=== PATIENT | male | born 1985 | race Caucasian/White ===

== ENCOUNTER 2017-12-16 18:10 | Emergency (ER) | payer BC, SELFPAY ==
--- NOTE | 2017-12-16 18:10 | DT_ITS ---
This patient was seen during an EMR downtime December 15, 2017 - December 22, 2017. This patient may have a combination of paper and electronic documentation or all paper documentation. All documentation is viewable within the e-chart portion of [facility] for each patient visit.
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
[2017-12-18 18:26] LABS: Bacteria 0 SEEN /hpf (None Seen); Color, Urine Yellow (Yellow); Glucose, Dipstick Normal (Normal); Ketone-Dipstick Negative (Negative); Leukocyte Esterase-Dipstick Negative /ul (Negative); Mucous, Urine 2+ /hpf (<or=2+); Nitrite-Dipstick Negative (Negative); Occult Blood-Urine 10 /ul (Negative); Protein-Dipstick 30 mg/dl (Negative); Red Blood Cells-Urine 0-5 SEEN /hpf (0-5); Specific Gravity, Urine 1.025 (1.002-1.030); Squamous Epithelial Cells - UA 0-5 SEEN /hpf (0-5); Urine Bilirubin Dipstick Negative (Negative); Urine Clarity Sl Cloudy (Clear); Urine Urobilinogen Normal (Normal); White Blood Cells 0 SEEN /hpf (0-5)
[2017-12-18 21:19] LABS: Anion Gap 8 (5-15); BUN 15 mg/dL (7-18); BUN/Creat Ratio 10.3 RATIO (10-20); Calcium,Total 8.8 mg/dL (8.5-10.1); Chloride 108 mmol/L (98-107); Creatinine, Serum 1.45 mg/dL (0.70-1.30); EST Glomerular Filtration Rate 61 mL/min (>60); Est Glom Filt Rate - Afr Amer 74 mL/min (>60); Glucose 113 mg/dL (74-106); Potassium 3.9 mmol/L (3.5-5.1); Sodium Level 142 mmol/L (136-145)
[2017-12-19 09:34] LABS: Mean Corp Hgb Conc 33.3 g/gl (32-36); Mean Corpuscular Hgb 30.4 pg (27.0-32.0); Mean Corpuscular Volume 91.3 fL (80-94); Mean Platelet Vol. 10.7 fl (6.2-12.0); Platelet Count 310 K/mm3 (150-450); RBC Distribution Width CV 13.7 % (11.6-14.6); RBC Distribution Width SD 45.4 fl (35.1-43.9); Red Blood Count 5.26 M/mm3 (4.6-6.2); Scan Indicated on CBC? Y/N NO; White Blood Count 14.6 K/mm3 (4.4-11.0)
== END 2017-12-16 21:05 | disposition home or self-care (01) ==
LOC: ED 12-18 08:35
PROVIDERS: Emergency Provider Emergency Medicine; Family Provider Family Medicine; PCP Family Medicine
DX: N20.0 Calculus of kidney (principal)
CPT/HCPCS: 74176; 80048; 81001; 85027; 96361; 96374; 96375; 99283; J7030; J2405

== ENCOUNTER 2018-03-30 08:51 | Outpatient (RCR) | payer BC, SELFPAY | END 2018-04-12 23:59 | LOC: NS 08:51 | PROVIDERS: Family Provider Family Medicine; PCP Family Medicine; Visit Provider Family Medicine | DX: E66.9 Obesity, unspecified (principal); Z82.49 Family history of ischemic heart disease and other diseases of the circulatory system; Z71.3 Dietary counseling and surveillance | CPT/HCPCS: 97802 ==

== ENCOUNTER 2018-05-11 09:00 | Outpatient (RCR) | payer BC, SELFPAY | END 2018-05-13 23:59 | LOC: NS 09:00 | PROVIDERS: Family Provider Family Medicine; PCP Family Medicine; Visit Provider Family Medicine | DX: E66.9 Obesity, unspecified (principal); Z82.49 Family history of ischemic heart disease and other diseases of the circulatory system; Z71.3 Dietary counseling and surveillance | CPT/HCPCS: 97803 ==

== ENCOUNTER 2018-05-26 09:34 | Outpatient (RCR) | payer BC, SELFPAY | END 2018-06-12 23:59 | LOC: NS 09:34 | PROVIDERS: Family Provider Family Medicine; PCP Family Medicine; Visit Provider Family Medicine | DX: E66.9 Obesity, unspecified (principal); Z82.49 Family history of ischemic heart disease and other diseases of the circulatory system; Z71.3 Dietary counseling and surveillance | CPT/HCPCS: 97803 ==

== ENCOUNTER 2018-07-08 09:00 | Outpatient (RCR) | payer BC, SELFPAY ==
[2017-10-19 10:33] VITALS: BMI 39.4
== END 2018-07-13 23:59 ==
LOC: NS 09:00
PROVIDERS: Family Provider Family Medicine; PCP Family Medicine; Visit Provider Family Medicine
DX: E66.9 Obesity, unspecified (principal); Z82.49 Family history of ischemic heart disease and other diseases of the circulatory system; Z71.3 Dietary counseling and surveillance
CPT/HCPCS: 97803

== ENCOUNTER 2018-08-10 16:00 | Outpatient (RCR) | payer BC, SELFPAY ==
[2017-10-19 10:33] VITALS: BMI 39.4
== END 2018-08-13 23:59 ==
LOC: NS 16:00
PROVIDERS: Family Provider Family Medicine; PCP Family Medicine; Visit Provider Family Medicine
DX: E66.9 Obesity, unspecified (principal); Z82.49 Family history of ischemic heart disease and other diseases of the circulatory system; Z71.3 Dietary counseling and surveillance
CPT/HCPCS: 97803

== ENCOUNTER 2018-08-16 20:50 | Emergency (ER) | payer BC, SELFPAY ==
[2018-08-16 20:52] VITALS: BP 172/107; PULSE 95; RESP 18; TEMP 36.7; O2SAT 99; BMI 40.7
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
[2018-08-16] MEDS: Morphine 4 MG/ML Syringe IV ×2 (21:14→21:45)
[2018-08-16] MEDS: Ondansetron 4 MG/2 ML Vial IV (21:14)
[2018-08-16 21:21] VITALS: BP 147/89; PULSE 100; RESP 23; O2SAT 100
[2018-08-16] MEDS: Diphth,Pertuss(Acell),Tet Vac 0.5 ML Vial IM (21:25)
--- NOTE | 2018-08-16 21:36 | ED.RN ---
CLOTHES CUT OFF OF PATIENT. INCONTINENT OF STOOL. INCONTINENCE CARE DONE. STILL C/O PAIN IN HIS RIBS. THIS NURSE GOING TO ASK FOR SOME MORE PAIN MEDICATIONS.
--- NOTE | 2018-08-16 21:37 | EKG12_ITS ---
Test Reason : Blood Pressure : / mmHG Vent. Rate : 101 BPM Atrial Rate : 101 BPM P-R Int : 162 ms QRS Dur : 094 ms QT Int : 352 ms P-R-T Axes : 038 045 024 degrees QTc Int : 456 ms Sinus tachycardia Nonspecific ST and T wave abnormality Abnormal ECG Confirmed by ANNELISE KERR, BERYL ([id number]), scientific publications editor JULIANNA WOODWARD ([id number]) on 08/19/2018 1:43:27 PM Referred By: MIK Confirmed By:BERYL CASTELAN MD
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
[2018-08-16 22:08] VITALS: BP 159/89; PULSE 105; RESP 28; O2SAT 100
[2018-08-16 22:55] VITALS: BP 156/113; BP 156/115; PULSE 113; PULSE 114; RESP 26; RESP 33; O2SAT 96; O2SAT 97
[2018-08-16] MEDS: fentaNYL 100 MCG/2 ML Ampul 50 MCG IV (23:03)
[2018-08-16 23:06] VITALS: BP 162/96; PULSE 103; RESP 29; TEMP 37.2; O2SAT 97
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
[2018-08-17] VITALS: BP 162/96; PULSE 103; RESP 29; TEMP 37.1; O2SAT 97
[2018-08-17 00:07] VITALS: BP 146/98; PULSE 111; RESP 21; O2SAT 100
== END 2018-08-17 00:15 | disposition short-term general hospital (02) ==
LOC: ED 21:30
PROVIDERS: Emergency Provider Emergency Medicine; Family Provider Family Medicine; PCP Family Medicine
DX: S22.20XA Unspecified fracture of sternum, initial encounter for closed fracture (principal); S32.019A Unspecified fracture of first lumbar vertebra, initial encounter for closed fracture; S32.029A Unspecified fracture of second lumbar vertebra, initial encounter for closed fracture; S02.2XXA Fracture of nasal bones, initial encounter for closed fracture; V49.40XA Driver injured in collision with unspecified motor vehicles in traffic accident, initial encounter; Y93.I9 Activity, other involving external motion; Y92.410 Unspecified street and highway as the place of occurrence of the external cause; Y99.8 Other external cause status
CPT/HCPCS: 70450; 70486; 71260; 72125; 73130; 73502; 74177; 90715; 93005; 96374; 96375; 99285; Q9967; A4216; J2405

== ENCOUNTER 2018-08-25 16:05 | Outpatient (RCR) | payer BC, SELFPAY ==
[2017-10-19 10:33] VITALS: BMI 39.4
== END 2018-08-25 23:59 ==
LOC: NS 16:05
PROVIDERS: Family Provider Family Medicine; PCP Family Medicine; Visit Provider Family Medicine
DX: E66.9 Obesity, unspecified (principal); Z82.49 Family history of ischemic heart disease and other diseases of the circulatory system; Z71.3 Dietary counseling and surveillance
CPT/HCPCS: 97803

== ENCOUNTER → 2018-10-07 15:40 | Outpatient (CLI) | payer BC, SELFPAY ==
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
== END ==
PROVIDERS: Family Provider Family Medicine; PCP Family Medicine; Referring Provider Family Medicine; Visit Provider Family Medicine
DX: R07.81 Pleurodynia (principal); V89.2XXA Person injured in unspecified motor-vehicle accident, traffic, initial encounter
CPT/HCPCS: 71101

== ENCOUNTER → 2019-03-18 | Outpatient (CLI) | payer BC, SELFPAY ==
[2019-03-18 08:28] VITALS: BMI 40.7
== END | disposition home or self-care (01) ==
PROVIDERS: Family Provider Family Medicine; PCP Family Medicine; Referring Provider Physician Assistant; Visit Provider Physician Assistant
DX: J06.9 Acute upper respiratory infection, unspecified (principal)
CPT/HCPCS: 87070

== ENCOUNTER 2019-10-13 10:30 | Emergency (ER) | payer BC, SELFPAY ==
[2019-03-18 08:28] VITALS: BMI 40.7
[2019-10-13 10:31] VITALS: BP 164/102; PULSE 87; RESP 17; TEMP 36.1; O2SAT 96; BMI 42.0
--- NOTE | 2019-10-13 11:02 | ED.VIS.GEN ---
History of Present Illness Chief Complaint: Laceration Informant: Patient Onset: Today Narrative: The patient cut his left dorsum of his thumb with a box finisher today. Last tetanus was last year. Past Medical History - Allergies and Home Meds Allergies/Adverse Reactions: Allergies No Known Allergies Allergy (Verified 10/13/19 10:30) Primary Care Physician: Alison Flores MD [Primary Care Provider] - Smoking Status: Never smoker Review of Systems General: Denies: Chills, Fever, Sweats Eyes: Denies: Visual changes - bilaterally, Diplopia ENT: Denies: Rhinorrhea, Sore throat Cardiovascular: Denies: Chest pain, Palpitations Respiratory: Denies: Dyspnea, Cough, Dyspnea on exertion Gastrointestinal: Denies: Abdominal pain, Nausea, Vomiting, Diarrhea, Melena, Hematochezia Genitourinary: Denies: Dysuria, Hematuria, Frequency Musculoskeletal: Denies: Back pain, Extremity Pain Skin: Denies: Rash, Wounds Neurological: Denies: Headache, Weakness, Numbness Physical Exam Vital Signs/Narrative: Vital Signs Temp Pulse Resp BP Pulse Ox 10/13/19 10:31 96.9 F L 87 17 164/102 H 96 Inital Vital Signs reviewed: Yes General: Well nourished, Well developed, No Acute Distress Head: Normocephalic, Atraumatic Eyes: Perrl, EOMI ENT: Moist mucous membranes, No rhinorrhea Neck: Supple, Nontender Cardiovascular: Regular rate, Regular rhythm, No murmurs Respiratory: No distress, CTA bilaterally, Chest nontender Abdomen: Soft, Nontender, Nondistended, Normal bowel sounds Back: Nontender, Normal Inspection Extremities: Nontender, No edema, - - There is a 1.5 cm linear laceration to the dorsal lateral aspect of the distal thumb. No nail involvement. Neurovascular intact. Wound appears clean normal tendon function Skin: Normal color, No rash Neurological: Alert, Oriented x3, Cranial nerves II-XII grossly intact, Normal Strength, Normal Sensation Psychological: Normal affect, Normal Mood Diagnostic/Tx/Re-eval - Medical Decision Making Wound was locally anesthetized using 1% lidocaine washed with Shur-Clens explored and closed using a total of 3 simple interrupted 5-0 Ethilon sutures. Wound care discussed with patient. Stitches will need to be removed in about 10 days. ED Disposition - Plan for ED Patient: Disposition: Home or Assisted Living Instructions: ED Laceration Hand Referrals: Alison Flores MD [Primary Care Provider] - 10 Day for suture removal
== END 2019-10-13 11:21 | disposition home or self-care (01) ==
LOC: ED 11:11
PROVIDERS: Emergency Provider Emergency Medicine; PCP Family Medicine
DX: S61.012A Laceration without foreign body of left thumb without damage to nail, initial encounter (principal); W26.0XXA Contact with knife, initial encounter; Y93.89 Activity, other specified; Y92.89 Other specified places as the place of occurrence of the external cause; Y99.8 Other external cause status
CPT/HCPCS: 12001; 99283

== ENCOUNTER 2019-10-15 16:30 | Outpatient (RCR) | payer BC, SELFPAY ==
[2019-03-18 08:28] VITALS: BMI 40.7
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
--- NOTE | 2019-10-15 16:44 | HP.PTDCSUM ---
It has been my pleasure to treat DIANE DAVIS III referred by Alison Flores MD, with the diagnosis of LUMBAR PAIN for a total of 13 visit(s). Discharge Date: Please see the following information for a summary of their discharge status. Subjective: PATIENT REPORTS HE IS MUCH BETTER. 90% BETTER. STATES HE KNOWS WHAT TO DO TO TRY TO CONTINUE TO IMPROVE NOW. 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 STATES HE FEELS IT IS JUST A MATTER OF DOING BETTER AT USING WHAT HE KNOWS. Lumbar Spine Pain Intensity (Out of 10): 0 LLE Pain Intensity (Out of 10): 0 % Improvement: 90 Objective/Function: PATIENT WAS SEEN TODAY FOR RE-ASSESSMENT OF PROGRESS TOWARD THE SET PT GOALS AND THE NEED FOR FURTHER PHYSICAL THERAPY VS READINESS FOR DISCHARGE. ALL GOALS HAVE BEEN MET AND HE IS APPROPRIATE FOR DISCHARGE FROM PT AT THIS TIME. UPON EXAM TODAY: Motor deficit: ANNITA LE'S 5/5 WITH MMT'ING. Sensory deficit: ANNITA LE LIGHT TOUCH SENSATION INTACT AND SYMMETRICAL. ROM deficit: ANNITA LE'S WFL. Reflexes: NT. Dural Signs: NEGATIVE ANNITA LE'S. Lumbar mvmt loss: flex - NIL. ext - MIN. R SG - NIL. L SG - NIL. PATIENT DENIES INCREASED PAIN OR LE SX'S WITH LUMBAR ROM TESTING ALL PLANES. Core strength: POOR TO FAIR. BUT HAS HEP. Palpation: NO ACUTE LUMBAR OR SACRAL TENDERNESS Goal 1:: DECREASE C/O BACK AND LE SX'S. Goal Progress: Goal Met Goal 2:: IMPROVE STANDING, LIFTING, SOCIAL LIFE, AND WORK FUCNTION Goal Progress: Goal Met Goal 3:: INSTRUCT IN PROPYLAXIS Goal Progress: Goal Met Plan: D/C - PATIENT AGREEABLE. If there are questions or concerns regarding this patient's physical therapy, please feel free to call me at [phone]. Thank you for the referral of this patient. Sincerely, Ying Moreira, PT, Cert MDT
== END 2019-10-15 19:00 | disposition home or self-care (01) ==
LOC: PT 16:30
PROVIDERS: PCP Family Medicine; Referring Provider Family Medicine; Visit Provider Family Medicine
DX: M54.5 Low back pain (principal)
CPT/HCPCS: 97112; 97113; 97162; 97164

== ENCOUNTER → 2022-01-10 | Outpatient (CLI) | payer BC, SELFPAY ==
[2022-01-10 17:52] LABS: Absolute Lymphocyte Count 2.79 X10^3/uL (0.83-4.51); Absolute Neutrophil Count 4.4 X10^3/uL (2.0-7.7); Basophil# 0.09 X10^3/uL; Basophil% 1.1 % (0-1); Eosinophils% 4.7 % (0-5); Hematocrit 48.3 % (40-54); Hemoglobin 16.2 g/dL (13.0-16.5); Lymphocyte # 2.79 X10^3/ul (0.83-4.51); Lymphocyte % 33.1 % (19-41); Mean Corp Hgb Conc 33.5 g/dL (32-36); Mean Corpuscular Volume 92.5 fL (80-94); Mean Platelet Vol. 10.6 fl (6.2-12.0); Monocyte# 0.74 X10^3/uL; Monocyte% 8.8 % (0-10); NRBC Flagged by Analyzer 0 % (0-5); Neutrophil % 52.1 % (47-70); Platelet Count 320 K/mm3 (150-450); RBC Distribution Width CV 13.7 % (11.6-14.6); Red Blood Count 5.22 M/mm3 (4.6-6.2); White Blood Count 8.4 K/mm3 (4.4-11.0)
[2022-01-10 18:26] LABS: ALB/GLOB Ratio 0.9 RATIO (0.9-2.4); AST(SGOT) 35 U/L (15-37); Alanine Aminotransfer ALT/SGPT 73 U/L (16-61); Albumin, Serum 3.9 g/dL (3.2-5.0); Alkaline Phosphatase 108 U/L (45-117); Anion Gap 7 (5-15); BUN 18 mg/dL (7-18); BUN/Creat Ratio 14.8 RATIO (10-20); Chloride 108 mmol/L (98-107); Cholesterol 186 mg/dL (200); Creatinine, Serum 1.22 mg/dL (0.70-1.30); EST Glomerular Filtration Rate 72 mL/min (>60); Est Glom Filt Rate - Afr Amer 87 mL/min (>60); Globulin 4.2 g/dL (2.2-4.2); Glucose 89 mg/dL (74-106); High Density Lipoprotein 47 mg/dL; Magnesium 2.4 mg/dL (1.6-2.6); Potassium 3.7 mmol/L (3.5-5.1); Protein, Total 8.1 g/dL (6.4-8.2); Sodium Level 139 mmol/L (136-145); Thyroid Stim Hormone (TSH) 2.66 uIU/mL (0.358-3.74); Triglycerides 160 mg/dL; Very Low Density Lipoprotein 32 mg/dL (5-40)
[2022-01-11 13:40] LABS: Hepatitis B Surface Antibody Non-Reactive; Hepatitis B Surface Antigen Non-Reactive (Nonreactive); Hepatitis C Antibody Non-Reactive (Nonreactive)
== END | disposition home or self-care (01) ==
LOC: MFPLAB 16:24
PROVIDERS: PCP Family Medicine; Visit Provider Family Medicine
DX: E66.01 Morbid (severe) obesity due to excess calories (principal); R03.0 Elevated blood-pressure reading, without diagnosis of hypertension
CPT/HCPCS: 36415; 80053; 80061; 83735; 84443; 85025; 86706; 86803; 87340

== ENCOUNTER 2022-07-30 12:36 | Day surgery (SDC) | payer OTHER, SELFPAY ==
[2022-07-30 13:03] VITALS: BP 139/89; PULSE 67; RESP 17; TEMP 36.6; O2SAT 95; BMI 43.9
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
--- NOTE | 2022-07-30 14:00 | EGD_PTH ---
PATIENT: DIANE DAVIS III LOC: EN U#:[id number] AGE/SX: 37/M ROOM: RE07/30/[address]: Dr. Srinath Suazo DO : 1985 BED: DIS: 07/30/2022 SPEC #: [id number] RECD: 07/30/22 17:10 STATUS: TREASURE RAJENDRA #: [id number] CARINE: 07/30/22 14:[address]: Srinath Suazo DEPT: SURGICAL PATHOLOGY RECD BY: Galen Armando ENTERED: 07/31/22 09:49 SP TYPE: EGD BIOPSY OT DR: MD Chaz Rangel MD Tissues: Esophagus, NOS Procedures: Special Stain Group II Surgery Specimen Level IV Alcian Blue/PAS (control) HEADER OPER[place] [place] with [place] PRE-OP DIAGNOSIS: GERD TISSUE SUBMITTED: Distal esophagus biopsy MICROSCOPIC DIAGNOSIS Distal esophagus, biopsy: Gastroesophageal junctional mucosa with chronic inflammation. Changes of reflux esophagitis. No evidence of goblet cell metaplasia. See comment. AM:charlie 08/01/2022 COMMENT Alcian blue/PAS stain with matched control supports the above diagnosis. MICROSCOPIC DESCRIPTION Slides are reviewed. GROSS DESCRIPTION Received in fixative is one container labeled with the patient's name and designated distal esophagus biopsy. The specimen consists of multiple irregular fragments of light prasad soft tissue that in aggregate measure 1 x 0.5 x 0.1 cm. The specimen is totally submitted in one cassette. / AM:charlie 07/31/2022 TC:3 CPT: 40686, 81481
--- NOTE | 2022-07-30 14:24 | OP.EGD_ITS ---
Patient Name: Billy Barbosa Procedure Date: 07/30/2022 2:07 PM Date of : 1985 Age: 37 Procedure: Upper GI endoscopy Indications: Heartburn Providers: Srinath Suazo DO Referring MD: Chaz Nguyễn Medicines: Monitored Anesthesia Care Patient Profile: This is a 37 year old male. Refer to note in patient chart for documentation of history and physical. Patient has symptoms of chronic heartburn. Complications: No immediate complications. Procedure: Pre-Anesthesia Assessment: - Prior to the procedure, a History and Physical was performed, and patient medications and allergies were reviewed. The risks and benefits of the procedure and the sedation options and risks were discussed with the patient. All questions were answered and informed consent was obtained. Patient identification and proposed procedure were verified by the physician. Mental Status Examination: normal. Prophylactic Antibiotics: The patient does not require prophylactic antibiotics. Prior Anticoagulants: The patient has taken no previous anticoagulant or antiplatelet agents. After reviewing the risks and benefits, the patient was deemed in satisfactory condition to undergo the procedure. The anesthesia plan was to use monitored anesthesia care (MAC). Immediately prior to administration of medications, the patient was re-assessed for adequacy to receive sedatives. The heart rate, respiratory rate, oxygen saturations, blood pressure, adequacy of pulmonary ventilation, and response to care were monitored throughout the procedure. The physical status of the patient was re-assessed after the procedure. After obtaining informed consent, the endoscope was passed under direct vision. Throughout the procedure, the patient's blood pressure, pulse, and oxygen saturations were monitored continuously. The gastroscope was introduced through the mouth, and advanced to the second part of duodenum. The upper GI endoscopy was accomplished without difficulty. The patient tolerated the procedure well. Scope In: 2:17:16 PM Scope Out: 2:19:10 PM Total Procedure Duration Time 0 hours 1 minute 54 seconds Findings: The Z-line was irregular and was found 38 cm from the incisors. Biopsies were taken with a cold forceps for histology. Verification of patient identification for the specimen was done. Estimated blood loss was minimal. No gross lesions were noted in the entire examined stomach. No other significant abnormalities were identified in a careful examination of the stomach. The first portion of the duodenum was normal. Impression: - Z-line irregular, 38 cm from the incisors. Biopsied. - No gross lesions in the stomach. - Normal first portion of the duodenum. Recommendation: - Discharge patient to home. - Resume previous diet. - Continue present medications. - Await pathology results. Procedure Code(s): --- Professional --- 07752, Esophagogastroduodenoscopy, flexible, transoral; with biopsy, single or multiple CPT copyright 2017 [employer]. All rights reserved. The codes documented in this report are preliminary and upon fluid power mechanic review may be revised to meet current compliance requirements. Srinath Suazo DO 07/30/2022 2:24:05 PM This report has been signed electronically. Number of Addenda: 0 Note Initiated On: 07/30/2022 2:07 PM
[2022-07-30 14:25] VITALS: BP 107/73; BP 139/89; PULSE 71; RESP 14; TEMP 36.2; O2SAT 93
--- NOTE | 2022-07-30 14:25 | OP.CCLET_ITS ---
07/30/2022 Chaz Nguyễn Md Re : Upper GI endoscopy procedure for Billy Barbosa Dear Delma This procedure was performed on Saturday, July 30, 2022. My impressions and recommendations are as follows: Impressions : - Z-line irregular, 38 cm from the incisors. Biopsied. - No gross lesions in the stomach. - Normal first portion of the duodenum. Recommendations : - Discharge patient to home. - Resume previous diet. - Continue present medications. - Await pathology results. My findings are described in the full procedure note, which is enclosed. If I can be of further assistance, please feel free to contact me at . Sincerely, Srinath Suazo, 07/30/2022 2:24:05 PM This report has been signed electronically.
[2022-07-30 14:30] VITALS: BP 139/89; BP 99/65; PULSE 60; RESP 16; O2SAT 94
[2022-07-30 14:35] VITALS: BP 107/69; BP 139/89; PULSE 62; RESP 16; O2SAT 94
[2022-07-30 14:40] VITALS: BP 103/74; BP 139/89; PULSE 72; RESP 16; TEMP 36.2; O2SAT 94
[2022-07-30 14:58] VITALS: BP 139/89
== END 2022-07-30 15:11 | disposition home or self-care (01) ==
LOC: EN 12:37 → AC 12:38
PROVIDERS: PCP Family Medicine; Referring Provider Family Medicine; Visit Provider Internal Medicine Gastroenterology
PROC: 0DJ08ZZ Inspection of Upper Intestinal Tract, Via Natural or Artificial Opening Endoscopic (ICD-10-PCS; CPT 43235; principal; 2022-07-30 13:55)
DX: K21.00 Gastro-esophageal reflux disease with esophagitis, without bleeding (principal)
CPT/HCPCS: 43239; 88305; 88313; J7120; J2405

== ENCOUNTER → 2023-02-20 | Outpatient (CLI) | payer OTHER, SELFPAY ==
[2023-02-20 12:12] LABS: Bacteria 0 SEEN /hpf (None Seen); Mucous, Urine 0 SEEN /hpf (<or=2+); Red Blood Cells-Urine 0 SEEN /hpf (0-5); Squamous Epithelial Cells - UA 0 SEEN /hpf (0-5); White Blood Cells 0 SEEN /hpf (0-5)
[2023-02-20 15:23] LABS: Absolute Neutrophil Count 4.4 X10^3/uL (2.0-7.7); Basophil# 0.07 X10^3/uL; Color, Urine Yellow (Yellow); Eosinophil# 0.21 X10^3/uL; Eosinophils% 2.9 % (0-5); Glucose, Dipstick Normal (Normal); Hematocrit 48.8 % (40-54); Hemoglobin 15.5 g/dL (13.0-16.5); Ketone-Dipstick Negative (Negative); Leukocyte Esterase-Dipstick Negative /ul (Negative); Lymphocyte % 28.6 % (19-41); Mean Corp Hgb Conc 31.8 g/dL (32-36); Mean Corpuscular Hgb 30.6 pg (27.0-32.0); Mean Corpuscular Volume 96.3 fL (80-94); Mean Platelet Vol. 10.6 fl (6.2-12.0); Monocyte# 0.57 X10^3/uL; Monocyte% 7.8 % (0-10); NRBC Flagged by Analyzer 0 % (0-5); Neutrophil # 4.37 X10^3/uL (2.7-7.7); Neutrophil % 59.4 % (47-70); Nitrite-Dipstick Negative (Negative); Occult Blood-Urine Negative /ul (Negative); Platelet Count 335 K/mm3 (150-450); Protein-Dipstick Negative (Negative); RBC Distribution Width CV 14.1 % (11.6-14.6); RBC Distribution Width SD 49.8 fl (35.1-43.9); Red Blood Count 5.07 M/mm3 (4.6-6.2); Urine Bilirubin Dipstick Negative (Negative); Urine Clarity Clear (Clear); Urine Urobilinogen Normal (Normal); White Blood Count 7.3 K/mm3 (4.4-11.0)
[2023-02-20 16:08] LABS: ALB/GLOB Ratio 0.9 RATIO (0.9-2.4); AST(SGOT) 29 U/L (15-37); Alanine Aminotransfer ALT/SGPT 66 U/L (16-61); Albumin, Serum 3.7 g/dL (3.2-5.0); Alkaline Phosphatase 121 U/L (45-117); Anion Gap 5 (5-15); BUN 14 mg/dL (7-18); BUN/Creat Ratio 13.2 RATIO (10-20); Chloride 106 mmol/L (98-107); Cholesterol 131 mg/dL (200); Creatinine, Serum 1.06 mg/dL (0.70-1.30); EST Glomerular Filtration Rate 84 mL/min (>60); Est Glom Filt Rate - Afr Amer 102 mL/min (>60); Globulin 4.2 g/dL (2.2-4.2); Glucose 97 mg/dL (74-106); High Density Lipoprotein 57 mg/dL; Potassium 4.2 mmol/L (3.5-5.1); Protein, Total 7.9 g/dL (6.4-8.2); Sodium Level 138 mmol/L (136-145); Thyroid Stim Hormone (TSH) 2.67 uIU/mL (0.358-3.74); Triglycerides 130 mg/dL; Very Low Density Lipoprotein 26 mg/dL (5-40)
[2023-02-20 16:30] LABS: Hepatitis B Surface Antibody Non-Reactive; Hepatitis B Surface Antigen Non-Reactive (Nonreactive); Hepatitis C Antibody Non-Reactive (Nonreactive)
== END | disposition home or self-care (01) ==
LOC: MFPLAB 12:09
PROVIDERS: PCP Family Medicine; Visit Provider Family Medicine
DX: I10 Essential (primary) hypertension (principal)
CPT/HCPCS: 36415; 80053; 80061; 81001; 84443; 85025; 86706; 86803; 87340

== ENCOUNTER → 2023-03-12 | Outpatient (CLI) | payer OTHER, SELFPAY ==
--- NOTE | 2023-03-17 16:32 | STRESSREP ---
Stress Test Report Date: 03/12/2023 Procedure: Exercise stress test Indications: Chest pain Consent: Per the patient Procedure: The patient exercised on a Tushar protocol for 7 minutes achieving a peak heart rate of 179 bpm (96% predicted maximal heart rate) with a peak blood pressure 198/100 mmHg and a peak MET capacity of 10.1 METs. The baseline ECG demonstrated normal sinus rhythm. The peak exercise ECG demonstrated no significant ischemic changes. EKG during recovery revealed no significant ischemic changes [There were no cardiac dysrhythmias pretest, during exercise, or recovery]. The functional capacity was considered borderline decreased for age. There was [no complaint of chest discomfort during exercise or recovery]. The examination was discontinued secondary to shortness of breath. Impression: 1. Technically adequate (percent predicted maximal heart rate greater than 85%) exercise tolerance test 2. Stress test is negative for exercise-induced EKG changes of ischemia 3. The test test is negative for exercise-induced chest pain 4. Functional capacity is mildly decreased for age
== END | disposition home or self-care (01) ==
LOC: CVS 11:40
PROVIDERS: PCP Family Medicine; Referring Provider Family Medicine; Visit Provider Family Medicine
DX: R07.89 Other chest pain (principal)
CPT/HCPCS: 93017

== ENCOUNTER → 2023-03-20 | Outpatient (CLI) | payer OTHER, SELFPAY ==
[2023-03-20 17:39] LABS: Absolute Lymphocyte Count 2.54 X10^3/uL (0.83-4.51); Absolute Neutrophil Count 3.8 X10^3/uL (2.0-7.7); Basophil# 0.08 X10^3/uL; Basophil% 1.1 % (0-1); Eosinophil# 0.25 X10^3/uL; Eosinophils% 3.4 % (0-5); Hematocrit 48.6 % (40-54); Hemoglobin 15.8 g/dL (13.0-16.5); Lymphocyte # 2.54 X10^3/ul (0.83-4.51); Lymphocyte % 34.3 % (19-41); Mean Corp Hgb Conc 32.5 g/dL (32-36); Mean Corpuscular Hgb 30.8 pg (27.0-32.0); Mean Corpuscular Volume 94.7 fL (80-94); Mean Platelet Vol. 10.5 fl (6.2-12.0); Monocyte# 0.71 X10^3/uL; Monocyte% 9.6 % (0-10); NRBC Flagged by Analyzer 0 % (0-5); Neutrophil # 3.81 X10^3/uL (2.7-7.7); Neutrophil % 51.5 % (47-70); Platelet Count 327 K/mm3 (150-450); RBC Distribution Width CV 14.1 % (11.6-14.6); Red Blood Count 5.13 M/mm3 (4.6-6.2); White Blood Count 7.4 K/mm3 (4.4-11.0)
[2023-03-20 17:53] LABS: AST(SGOT) 28 U/L (15-37); Alanine Aminotransfer ALT/SGPT 55 U/L (16-61)
[2023-03-24 10:08] LABS: QNTFERON TB Mitogen Value > 10.00 IU/mL (.); QNTFERON TB Nil Value 0.06 IU/mL (.); QNTFERON TB1+ Ag Value 0.05 IU/mL (.); QNTFERON TB2+ Ag Value 0.08 IU/mL (.); QNTIFERON TB Positive Criteria Negative (Negative)
== END | disposition home or self-care (01) ==
LOC: MFPLAB 14:34
PROVIDERS: PCP Family Medicine; Visit Provider Dermatology
DX: L40.0 Psoriasis vulgaris (principal); Z79.899 Other long term (current) drug therapy
CPT/HCPCS: 36415; 84450; 84460; 85025; 86480

== ENCOUNTER → 2023-05-10 | Outpatient (CLI) | payer OTHER, SELFPAY ==
--- NOTE | 2023-05-10 08:42 | US_ITS ---
STUDY: RENAL ULTRASOUND - COMPLETE REASON FOR EXAM: Male, 37 years old. Elevated BUN and creatinine TECHNIQUE: Ultrasound evaluation of the kidneys was performed with real-time and static rossi-scale imaging. COMPARISON: None. FINDINGS: RIGHT KIDNEY: Normal location of the right kidney, which is normal in size. The right kidney measures 12.0 x 5.0 x 5.5 cm. There is a normal cortex of the right kidney. The renal cortex measures 1.4 cm. There is a well-defined not simple cyst measuring 3.1 x 2.4 x 2.6 cm. Recommend either follow-up ultrasound in 3-6 months to assess stability or further evaluation with CT for further evaluation There are no right renal calculi. There is no right hydronephrosis. DISTAL RIGHT URETER: There is non-visualization of the distal right ureter. There is no demonstrated right ureterovesical junction calculus. There is a visualized right ureteral jet. LEFT KIDNEY: Normal location of the left kidney, which is normal in size. The left kidney measures 11.4 x 5.5 x 6.0 cm. There is a normal cortex of the left kidney. The renal cortex measures 1.5 cm. There is no left renal mass or cyst. There are no left renal calculi. There is no left hydronephrosis. DISTAL LEFT URETER: There is non-visualization of the distal left ureter. There is no demonstrated left ureterovesical junction calculus. There is a visualized left ureteral jet. AORTA: There is no elongation or tortuosity of the abdominal aorta. I.V.C.: The IVC is patent. BLADDER: The bladder is sonographically normal US/Kidney and Bladder IMPRESSION: No obstructive uropathy There is a hypoechoic structure in the right kidney, it is not a simple cyst by ultrasound. Recommend either further evaluation with CT or short-term follow-up ultrasound to reassess. Electronically Signed: Alexi Fernandez MD at 10:50 EDT ,
== END | disposition home or self-care (01) ==
LOC: US 08:38
PROVIDERS: PCP Family Medicine; Referring Provider Family Medicine; Visit Provider Family Medicine
DX: I10 Essential (primary) hypertension (principal)
CPT/HCPCS: 76770

== ENCOUNTER 2023-05-12 08:00 | Outpatient (RCR) | payer OTHER, SELFPAY ==
--- NOTE | 2023-05-12 09:00 | BH.COMM ---
Communication Note Communication with Client Communication Note: Met with client to complete update to pre-admission screening. Pt had completed an intake less than 4 weeks ago, however has since been admitted to inpatient psych unit. Update completed. Complete [facility] Suicide screening with low-moderate risk. Denies active SI, plan, or intent. Last SI occurred 2 weeks ago. [address] with Dr. Dominguez with plan to admit to [facility] level of care with dx f33.2
--- NOTE | 2023-05-12 09:10 | BH.SGPN.GN ---
Behaviors/Verbalizations/Mental Status: [Patient was alert and oriented, appropriately dressed and groomed. Eye contact was good, motor activity normal, speech within normal limits. Affect congruent, mood anxious. Thoughts linear, logical, no signs of hallucinations or delusions. Reviewed Patients symptom tracker and the patient reported themselves as moderate in anxiety/panic attacks and low/moderate for depressed mood. The patient does not report symptoms of agitation/irritability/anger, self-harm urges, or thoughts/risk of suicide.] Client Response/Progress/Benefit: [] Narrative Note: [Today was the patients first day in group. Patient was engaged and open to the discussion. Patient reported his mood to be ?anxious?. The patient shared that he does not normally ?put himself out there like this? and that his first win would be that he is engaging in something that makes him uncomfortable. The patient shared he had just gotten out of the hospital on Friday and is now accepting that he needs help. Patient shared that he isolates and was taught he takes care of himself and does not want to burden people with his problems. Making these changes he said is going to be uncomfortable and stressful, but he said he ?has no choice? now. When prompted about what this meant he said that if he wants to be happy, he has no choice but to reach out. Patient was interactive and respectful with other group members about their mental wins and stressors. Patient benefited from the discussion by listening to feedback and giving input on his peer?s stressors and mental health wins. Patient will continue with IOP treatment to help develop healthy skills, promote mood stability, and improve distress tolerance. ]
--- NOTE | 2023-05-12 10:15 | BH.SGPN.GN ---
Behaviors/Verbalizations/Mental Status: [] Eye contact is good. Motor activity is appropriate. Appearance is casual. Speech is Appropriate. Mood is anxious and depressed. Affect is congruent. Thoughts are linear and logical. No evidence of psychosis. Client Response/Progress/Benefit: [] Client first day in IOP tx, he was attentive during interactive group discussions AEB by writing notes, asking questions, and sharing when prompted. Attentive during psychoeducation on the six types of boundaries (physical, emotional, intellectual, sexual, time, and material). Along with peers, pt contributed to interactive discussion identifying common challenges to setting and maintaining healthy boundaries which included; fear of other's response, guilt, fear of losing relationships, and resentment for having to establish the boundary in the first place. Client along with peers identified the benefits to setting boundaries. Client shared he struggles with setting boundaries because he has had past negative experiences when establishing a boundary, as well as struggles with mind reading and predicting that the boundary with be disrespected so why bother?. Client benefited from increased awareness and insight on the importance/benefit to setting healthy boundaries. Will continue in IOP to improve daily functioning, increase healthy coping repertoire to reduce anxiety and depression, and prevent decompensation. Narrative Note: []
--- NOTE | 2023-05-12 11:15 | BH.SGPN.GN ---
Behaviors/Verbalizations/Mental Status: []Pt alert and oriented, casually dressed and groomed. Eye contact good. Motor activity appropriate. Speech within normal limits. Affect congruent, mood anxious and depressed. Thoughts linear, logical, no signs of hallucinations or delusions. Client Response/Progress/Benefit: []Pt responded well to session, engaged and contributing. Pt attentive during psychoeducation on the different boundary styles. Pt reports connecting with all 3 boundary setting styles depending on the person or environment. Pt shared this has impacted his ability to consistently feel in control of his decisions. Group brainstormed various strategies for improving ability to establish and maintain healthy boundaries. Reported he wants to work on using Delay, Distract, and Decide before reacting when trying to maintain a boundary. Appeared to benefit from increasing insight to boundary setting styles and the impacts on mental health. Will continue IOP tx to prevent decompensation, improve ability to function and better challenge thought distortions, and increase healthy coping. Narrative Note: []
--- NOTE | 2023-05-13 09:00 | BH.SGPN.GN ---
Behaviors/Verbalizations/Mental Status: [] Eye contact is poor. Motor activity is appropriate. Appearance is casual. Speech is Appropriate. Mood is depressed. Affect is flat. Thoughts are linear and logical. No evidence of psychosis. Reviewed daily check in sheet and no reports of suicidal ideations or intent. Client Response/Progress/Benefit: [] Pt participated when prompted. Attentive. Daily symptom tracker notes 2/5 for depression and 1/5 for anxiety and irritabilty. Emotion for today is content. He shared struggles with depression and negative automatic thoughts last evening. Also reports feeling guilty for recent actions. Discussed unrealistic expectations to solve everyone's problems which often leads to neglecting himself. Reports that while he was struggling yesterday he had the thought and urge to stop mental health treatment for himself and instead focus on helping his . I just wanted to give up. Group was able to challenge these thoughts and beliefs which was beneficial. Reports feeling guilty due to his mental health struggles recently and how this has impacted his family. Limited progress noted AEB continued negative automatic thoughts and cognitive distortions impacting his functioning and emotions. Will continue in IOP to prevent decompensation/re-admission, stabilize mood, increase healthy coping, and improve functioning to return to work. Narrative Note: []
--- NOTE | 2023-05-13 10:03 | BH.SGPN.GN ---
Behaviors/Verbalizations/Mental Status: [] Client alert and oriented, casually dressed and groomed. Eye contact good. Motor activity appropriate. Speech within normal limits. Affect congruent, mood euthymic. Thoughts linear, logical, no signs of hallucinations or delusions. Client Response/Progress/Benefit: [] Client responded well to session AEB sharing and listening attentively to others. Client provided examples of benefits of having social support, including that they can ?help give you different views on a situation?. Client also participated in group discussion regarding how it feels to not have social support.. Clinician provided psychoeducation on types of support including internal and external support, with client identifying family and therapist as other supports. Client participated in experiential activity illustrating the importance of having multiple social supports and highlighting the roles of supports. Client provided supportive feedback and problem solving throughout group activity. Client participated in group processing of the activity, stating having more social support takes all the pressure off yourself. Client appeared to benefit from increased knowledge of the benefits of social support and greater self-awareness. Will continue IOP treatment to continue increasing application of healthy coping skills and decreasing negative self-talk to improve daily functioning. Narrative Note: []
--- NOTE | 2023-05-13 11:03 | BH.SGPN.GN ---
Behaviors/Verbalizations/Mental Status: [] Client alert and oriented, casually dressed and groomed. Eye contact good. Motor activity appropriate. Speech within normal limits. Affect congruent, mood euthymic. Thoughts linear, logical, no signs of hallucinations or delusions. Client Response/Progress/Benefit: [] Client was an active participant throughout AEB contributing to discussion, providing personal examples, and taking notes. Client processed emotions felt in the activity and how they coped in the moment. Client provided input during discussion on the types of support our supports can provide. Client able to identify current support system and barriers that get in the way of using supports by drawing out their own support net. Client reported after identifying what type of supports they receive; they gained awareness that they could benefit from more informational supports. Client identified steps to achieve this by going to therapy, look for more groups, and learn and be more open to learn. Client shared increasing informational supports will help them learn more ways to cope and mange their lives. Client seemed to benefit from identifying the type of support client needs to work on improving. Client recommended to continue IOP tx to prevent decompensation, reduce isolation, and increase overall functioning. Narrative Note: []
--- NOTE | 2023-05-15 15:00 | BH.MTP_ITS ---
Master Treatment Plan Patient Information Program Physician:: Dr. De Primary Therapist:: Ester Gastelum, [facility] Psychiatric Diagnoses Psychiatric Diagnoses:: 1. Major depressive disorder, recurrent, severe without psychosis 2. Panic disorder 3. History of ADHD 4. Primary support and work issues Diagnosis Code(s):: F33.2 Estimated LOS Estimated LOS (in weeks):: 6 Problem/Goal #1 Problem/Goal #1 Stated Goal:: Client will reduce depressive symptoms, feelings of worthlessness, and anhedonia due to Major Depressive Disorder through Intensive Outpatient Program. Description of Barriers: Potential barriers include low motivation, apathy, negative thoughts, anhedonia, and anxious thoughts. Functional Impact: The patient is a 37-year-old male with a history of depression, anxiety and PTSD who was referred to the [facility] by his psychiatric providers for worsening depression and anxiety. The patient did an intake but then was admitted at [facility] psychiatric unit from May 04 to May 09, 2023 for depression and suicidal ideation and anxiety. He states that people at work were critical of him and accused him of not doing his job so I just walked out. He has a long history of depression for most of his life and he somewhat blames himself for his father committing suicide when the patient was a teenager. He remains depressed with occasional crying and decreased motivation. He denies hopelessness but admits to guilt and occasional worthlessness. He endorses anhedonia and low, low energy and, and decreased concentration. Objectives Objective #1: Stated Objective: Client will learn and utilize 2-3 healthy coping strategies to manage depressive symptoms. Interventions: Therapist will utilize CBT techniques to assist client with understanding the connection between thoughts, feelings and behaviors. Education will be provided on behavioral activation. Therapist will assist client in learning internal coping strategies to manage depressive symptoms, along with helping client identify triggers. Discharge Criteria: Client will have achieved this goal when can verbalize and has practiced at least 2 healthy coping strategies that successfully manage depressive symptoms. Objective #2: Stated Objective: Client will identify and replace 2-3 negative thinking patterns that reinforce feelings of depression. Interventions: Group and therapist will assist the client in identifying, challenging, and replacing dysfunctional thoughts with positive self-enhancing thoughts. Discharge Criteria: Client will have achieved this goal when can identify at least 2 negative thinking patterns and replace thoughts with rational thoughts. Problem/Goal #2 Problem/Goal #2 Stated Goal:: Stabilize anxiety level while increasing ability to function on daily basis. Description of Barriers: Potential barriers include low motivation, apathy, negative thoughts, anhedonia, and anxious thoughts. Functional Impact: The patient is a 37-year-old male with a history of depression, anxiety and PTSD who was referred to the [facility] by his psychiatric providers for worsening depression and anxiety. The patient did an intake but then was admitted at [facility] psychiatric unit from May 04 to May 09, 2023 for depression and suicidal ideation and anxiety. He states that people at work were critical of him and accused him of not doing his job so I just walked out. He has a long history of depression for most of his life and he somewhat blames himself for his father committing suicide when the patient was a teenager. He remains depressed with occasional crying and decreased motivation. He denies hopelessness but admits to guilt and occasional worthlessness. He endorses anhedonia and low, low energy and, and decreased concentration. Objectives Objective #1: Stated Objective: Client will learn and implement 2-3 calming skills to reduce overall anxiety and manage anxiety symptoms. Interventions: Therapist and group sessions will help client identify physiological warning signs of anxiety, increase awareness of thoughts that increase anxiety, and identify behaviors that reinforce anxious symptoms. Group and individual counseling will teach client calming skills to help manage anxious symptoms. Discharge Criteria: Client will have achieved this goal when can verbalize at least 2 calming skills and reports skills successfully help reduce anxious symptoms. Objective #2: Stated Objective: Pt will decrease anxious symptoms AEB pt?s score on the DSM 5 cross-cutting measure improve pt?s daily functioning. Interventions: Through groups and individual therapy, pt will be provided education about anxiety?s impact on body and common physiological reaction to anxiety. Therapist will teach pt appropriate breathing techniques and build healthy coping skills to manage daily anxieties. Discharge Criteria: Pt will have met this goal when pt?s score on the DSM 5 cross cutting measure for anxiety has been decreased and per pt?s report daily functioning has improved.
== END 2023-05-13 23:59 ==
LOC: BHIOP 08:00
PROVIDERS: PCP Family Medicine; Referring Provider Psychiatry & Neurology Psychiatry; Visit Provider Psychiatry & Neurology Psychiatry
DX: F33.2 Major depressive disorder, recurrent severe without psychotic features (principal)
CPT/HCPCS: S9480; 90853

== ENCOUNTER 2023-05-14 06:50 | Outpatient (RCR) | payer OTHER, SELFPAY ==
--- NOTE | 2023-05-14 09:00 | BH.SGPN.GN ---
Behaviors/Verbalizations/Mental Status: [Patient was alert and oriented, appropriately dressed and groomed. Eye contact was good, motor activity normal, speech within normal limits. Affect congruent, mood anxious. Thoughts linear, logical, no signs of hallucinations or delusions. Reviewed Patients symptom tracker and the patient reported depressed mood, anxiety/panic attacks, aggravation/irritation/anger, self-harm urges, and risk/thoughts of suicide within patients normal base level.] Client Response/Progress/Benefit: [ Patient was engaged and open to the discussion. Patient reported his mood being ?anxious?.??The patients first win was that he and his handed out candy for Halloween. The patient said he struggles with social anxiety so he normally would not be able to do this. His second win was that he helped his with some of her stressors that she had going on and it made him feel good. The stressor he said was that he has to clean out and fix his basement. The patient shared his cousin has been living down there and he has been putting it off. Patient was interactive and respectful with other group members about their mental wins and stressors. Patient benefited from the discussion by listening to feedback and giving input on his peer?s stressors and mental health wins. Patient will continue with IOP treatment to help develop healthy skills, promote mood stability, and improve distress tolerance. ] Narrative Note: []
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
--- NOTE | 2023-05-14 11:10 | BH.SGPN.GN ---
Behaviors/Verbalizations/Mental Status: []Pt alert and oriented, casually dressed and groomed. Eye contact good. Motor activity appropriate. Speech within normal limits. Affect congruent, mood depressed. Thoughts linear, logical, no signs of hallucinations or delusions. Client Response/Progress/Benefit: [] Pt responded well to session AEB completing the resilience worksheet provided. Pt actively participated in the discussion and worked cooperatively with group to identify strategies to enhance each of the components discussed. Pt struggled to identify what resilience traits he already possesses, but pt was very active in the activity where group members used the resilience traits. Pt?s first of IOP tx, so pt was not challenged to identify traits as to build rapport and ease pt into group setting. Pt seemed to benefit from discussing strategies for improving personal resilience and gaining insight from peers. Will continue IOP tx to prevent decompensation, gain healthy coping skills, and reduce negative thinking patterns. ? Narrative Note: []
[2023-05-14 12:14] VITALS: BP 158/108; PULSE 80
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
--- NOTE | 2023-05-14 12:36 | BH.DR.ITP ---
Initial Treatment Plan Patient Information Visit Information: ADMISSION DATE: EXPECTED LOS: 4-6 weeks Problems/Symptoms Problem #1:: Depression Symptom:: Sadness, low motivation, worthlessness, guilt, anhedonia, low energy, decreased concentration, recent suicidal ideation Problem #2:: Anxiety Symptom:: Worry, rumination, panic attacks, avoidance
--- NOTE | 2023-05-15 09:00 | BH.SGPN.GN ---
Behaviors/Verbalizations/Mental Status: [Patient was alert and oriented, appropriately dressed and groomed. Eye contact was good, motor activity normal, speech within normal limits. Affect congruent, mood sad. Thoughts linear, logical, no signs of hallucinations or delusions. Reviewed Patients symptom tracker and the patient reports depressed mood, anxiety/panic attacks, aggravation/irritation/anger, self-harm urges, and risk/thoughts of suicide within patients normal base level.] Client Response/Progress/Benefit: [Patient was engaged and open to the discussion. Patients acid regenerator his mood is ?anxious?. ?The patient stated his first win was that he now has a plan to help himself stop procrastinating. The patient said that he will do 1 of the things on his priority list before he allows himself to read or play any video games. The second win is that he got into another psych doctor before October. Patient said his stressor is that he feels is his work because he stated he feels like a failure. When prompted on this, he said because he has ?been in the same position for the last 10 years with no promotions or moving up? makes him feel like a failure. Patient was interactive and respectful with other group members about their mental wins and stressors. Patient benefited from the discussion by listening to feedback and giving input on his peer?s stressors and mental health wins. Patient will continue with IOP treatment to help develop healthy skills, promote mood stability, and improve distress tolerance.] Narrative Note: []
--- NOTE | 2023-05-15 10:05 | BH.SGPN.GN ---
Behaviors/Verbalizations/Mental Status: [Patient was alert and oriented, casually dressed and groomed. Eye contact was good, motor activity normal, speech within normal limits. Affect congruent, mood depressed. Thoughts linear, logical, no signs of hallucinations or delusions. ] Client Response/Progress/Benefit: [Patient was engaged and open to the discussion and appeared to respond well to the group. Patient used active listening and gave feedback during group discussion. Patient identified that he thinks he is both negative and positive in his thinking. But the patient said he used to be very pessimistic, but he has been ?using his brain? and is ready to make changes. Patient appeared to benefit from increasing awareness of different perspectives and how they can affect mental health. Patient will continue IOP treatment to improve daily functioning, emotion management, and prevent decompensation.] Narrative Note: []
--- NOTE | 2023-05-15 11:15 | BH.SGPN.GN ---
Behaviors/Verbalizations/Mental Status: []Pt alert and oriented, casually dressed and groomed. Eye contact good. Motor activity appropriate. Speech within normal limits. Affect congruent, mood euthymic. Thoughts linear, logical, no signs of hallucinations or delusions. Client Response/Progress/Benefit: []Pt was attentive and contributed to small group discussion. Pt completed strengths exploration worksheet, identifying intelligence, magnetism, gratitude, and empathy as personal strengths. Pt able to acknowledge how these strengths are helping pt and can continue to help pt in mental health journey. Pt worked with group to identify strategies that can help increase utilization of personal strengths and how to challenge one?s perspective in general. Pt identified wanting to work on looking at the facts instead of believing negative thoughts to help challenge perspective. Benefited from identifying personal strengths and strategies for enhancing use of identified strengths. Pt will continue IOP tx to prevent decompensation, improve emotional regulation skills, and combat distorted thought patterns. Narrative Note: []
--- NOTE | 2023-05-15 14:42 | BH.MDN_ITS ---
Multi-Disciplinary Note Note 30-min Individual: Time Started:: 12:15 Date: 05/15/23 Purpose of session/treatment goals addressed:: Reviewed progress and current symptoms. Used the session to discuss return to work. Eye Contact:: Good Motor Activity:: Appropriate Appearance:: Disheveled Speech:: Appropriate Mood:: Anxious and Depressed Affect:: Congruent Thoughts:: Linear, Logical and No evidence of hallucinations/delusions noted Staff Interventions:: psychoeducation on: (coping and calming skills, proactive vs reactive use of skills. ) and mindfulness skills Client Response:: Pt is scheduled to return to work tomorrow. Discussion was had yesterday and today regarding ability to have him take continuous and reduced leave since he was recently discharged from psychiatrist unit on 05/09/23. Pt reports that he is ready to return and is feeling much better than he did on 05/04/23 when he left work on voluntarily admitted himself. He has upcoming previously planned vacation which will limit work days. 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 Denies ruminating or dreading his return to work however admits he is anxious. Provided education on proactive calming skills to utilize before, during, and after work. We practiced 5 senses and other calming skills in session. Encourage taking breaks if needed. Risks/Concerns:: Denies any SI or HI. Progress Toward Goals/Plan:: Progress noted since discharge from inpatient psych and staring IOP. I'm working on myself and its feels good. Less irritable and more hopeful. Purpose of the session was to discuss return to work and provide a plan to manage emotion dysregulation if it occurs. FMLA and disability paperwork completed yesterday by Dr. De and copies given to patient. Dr. De did write for intermittent leave if symptoms worsened and this was explained to patient. Will continue in IOP to prevent decompensation/re-admission, increase healthy coping, and to improve functioning. Time Stopped:: 12:40
--- NOTE | 2023-05-19 09:02 | BH.SGPN.GN ---
Behaviors/Verbalizations/Mental Status: [] Pt alert and oriented, Casually dressed and groomed. Eye contact good. Motor activity appropriate. Speech within normal limits. Affect constricted, mood dysthymic and anxious. Thoughts linear, logical, no signs of hallucinations or delusions. Reviewed pt?s symptom tracker, no risk for suicidal ideation, plan, or intent. Client Response/Progress/Benefit: []Client responded well to session as evidenced by listening attentively to others and sharing with others. Per symptom tracker client reported a 0/5, with 5 being severe, for depressed mood and a 1/5 for anxiety. Client reported mental health positive as returning to work this week and resolving a conflict with a co-worker. Client stated resolving the conflict at work helped decrease his stress and anxiety and made work not so bad. Client stated he is starting to notice his thinking patterns are negatively impacting his mood. Client reported feeling confused. Seemed to benefit from support from peers. Client to continue IOP to improve emotion regulatio, challenge distortions, and prevent decompensation. Narrative Note: []
--- NOTE | 2023-05-19 10:15 | BH.SGPN.GN ---
Behaviors/Verbalizations/Mental Status: [] Eye contact is good. Motor activity is appropriate. Appearance is casual. Speech is Appropriate. Mood is anxious and depressed. Affect is congruent. Thoughts are linear and logical. No evidence of psychosis. Client Response/Progress/Benefit: [] Pt was an active participant in group discussions. Attentive during psychoeducation AEB by note taking and providing some input. Pt worked along with peers in small groups to define guilt, inappropriate guilt, and appropriate guilt. Interactive discussion on examples of both inappropriate and appropriate guilt. Pt identified a personal example of inappropriate guilt which was feeling guilty for saying 'No' when asked for help or a favor from someone and how this impacted their mental health. Benefited from increased awareness of guilt and the differences between appropriate and inappropriate guilt. Will continue in IOP to improve functioning, reduce self-deprecation, and increase healthy coping skills. Narrative Note: []
--- NOTE | 2023-05-19 11:15 | BH.SGPN.GN ---
Behaviors/Verbalizations/Mental Status: []Pt alert and oriented, casually dressed and groomed. Eye contact good. Motor activity appropriate. Speech within normal limits. Affect congruent, mood present. Thoughts linear, logical, no signs of hallucinations or delusions. Client Response/Progress/Benefit: []Pt engaged participant AEB listening attentively to others and providing input throughout group. Pt worked with their small group to identify strategies to manage inappropriate guilt. Pt stated pt often feels inappropriate guilt when pt does not reach his own ?unrealistic standards.? Pt wants to work on combatting inappropriate guilt by practicing opposite action and reducing reassurance seeking behaviors. Pt seemed to benefit from learning about strategies to manage appropriate and inappropriate guilt. Pt to continue IOP to prevent decompensation, improve daily functioning, and reduce negative thinking patterns. Narrative Note: []
--- NOTE | 2023-05-23 10:15 | BH.SGPN.GN ---
Behaviors/Verbalizations/Mental Status: [Patient was alert and oriented, casually dressed and groomed. Eye contact good, motor activity normal, speech within normal limits. Affect congruent, mood content. Thoughts linear, logical, no signs of hallucinations or delusions. ] Client Response/Progress/Benefit: [Patient was open and participated in group discussions. Attentive during psychoeducation on behavior activation. Participated during the activity. Interactive group discussion on behavior activation in which group verbalized different up and down activities and how they can positively or negatively impact their actions. Patient stated some of his ?up? activities are listening to music, dipti, and driving. Patient stated some of his ?down? activities are ?vegetating?, shopping, and snacking. Patient benefited from increased awareness of stages of changes and how emotions impact change. Will continue in IOP to promote gains, further combat distorted thinking, and improve daily functioning.] Narrative Note: []
--- NOTE | 2023-05-23 11:10 | BH.SGPN.GN ---
Behaviors/Verbalizations/Mental Status: [] Eye contact is fair. Motor activity is appropriate. Appearance is casual. Speech is Appropriate. Mood is euthymic. Affect is congruent. Thoughts are linear and logical. No evidence of psychosis. Client Response/Progress/Benefit: [] Pt responded well to session, attentive and engaged in group discussions and activity. Group discussed values and the benefits that knowing one's values can have on one's mental health. Pt explored own values and identified personal top values. Pt stated important value is his mental health. Stated he wants to establish healthy outlets to release negative emotions and thoughts. Client set goals to continue attending all IOP sessions, get back involved in recreational activities, and practice communicating with family. Pt appeared to benefit from exploring values and creating a weekly goal. Will continue in IOP to improve thought patterns, increase healthy coping skills, and prevent decompensation.
--- NOTE | 2023-05-23 18:03 | BH.MDN ---
Multi-Disciplinary Note Note 45-min Individual: Time Started:: 09:05 Date: 05/23/23 Purpose of session/treatment goals addressed:: Purpose of session was to build rapport, gather background information, and solidify treatment goals for IOP. Eye Contact:: Fair Motor Activity:: Appropriate Appearance:: Casual Speech:: Appropriate Mood:: Dysthymic Affect:: Constricted Thoughts:: Linear, Logical and No evidence of hallucinations/delusions noted Staff Interventions:: thought challenging (introduced win journal), CBT techniques, strengths perspective, treatment planning, goal setting and taught coping skills Client Response:: Client stated so far he has found IOP to be helpful because of learning new skills and having more support. Client reported he did return back to work this week and he has been able to manage his emotions and do well. Client stated he had been nervous about being back to work due to having conflict with a co-worker. Client reported he was able to resolve and deal with the conflict with the co-worker which helped decrease his anxiety. Client stated while in IOP he would like to learn better ways to manage his emotions, healthier coping skills, and learn how to manage his depression and anxiety. Client reported when in a depressed state he will isolate from his family and he is more irritable. Client stated he has been working on not isolating. client stated he continues to struggle with irritability. Client shared example of recent trigger that resulted in him yelling. Client reported he did eventually go outside to calm down, but wants to work on being able to interrupt his anger cycle earlier. Client shared he went to counseling at age 16 and found it to be helpful when he was processing his dad's suicide. Client stated he still struggles at times with feeling responsible for his dad's even though he knows logically he is not to blame. Client reported he has struggled with negatives beliefs about himself starting in adolescence. Client stated he struggles with identifying any positives about himself and has a hard time believing his life will get better. Client connected with psychoeducation about interconnection between thoughts, behaviors, and emotions. Client agreeable for homework to start writing down his daily wins to help increase confidence and starting to challenge negative view of self. Risks/Concerns:: Denies active suicidal ideation, plan, or intention. future oriented. identifies children and family as protective factors. Progress Toward Goals/Plan:: Progress noted with client reporting returning back to work earlier this week and being able to manage it well. Client continues to reported depressed mood and anxious thoughts. Client struggles with low motivation, low energy, decreased concentration, and difficulty going to social situations. Client is to continue IOP to improve distress tolerance, increase healthy coping skills, and prevent decompensation. Time Stopped:: 09:50
--- NOTE | 2023-05-26 09:05 | BH.SGPN.GN ---
Behaviors/Verbalizations/Mental Status: [] Pt alert and oriented, casually dressed and groomed. Eye contact good. Motor activity appropriate. Speech within normal limits. Affect congruent, mood euthymic. Thoughts linear, logical, no signs of hallucinations or delusions. Reviewed pt?s symptom tracker, no risk for suicidal ideation, plan, or intent 05/26/23 Client Response/Progress/Benefit: []Pt responded well to session, attentive and receptive to feedback. Pt reports feeling good and not just alright this morning. Pt shared in the past he would say he is alright as his default emotion which meant he was not doing well. Pt stated he takes a lot from group sessions and he has been trying to focus on doing one thing at a time. Pt reported over the weekend he and his went to [place] and had time together which was positive. Pt also has been challenging his perspective and trying to communicate more. Pt's stressor this morning is worrying about finances and trying to fix things around the house. Pt appeared to benefit from reflecting on his application of coping skills. Pt will continue IOP tx to promote mood stability, reduce negative thinking patterns, and improve daily functioning. Narrative Note: []
--- NOTE | 2023-05-26 10:15 | BH.SGPN.GN ---
Behaviors/Verbalizations/Mental Status: [?Patient was alert and oriented, casually dressed and groomed. Eye contact good, motor activity normal, speech within normal limits. Affect congruent, mood content. Thoughts linear, logical, no signs of hallucinations or delusions. ] Client Response/Progress/Benefit: [Patient was open and participated in group discussions. Attentive during psychoeducation on stages of change. Participated during the activity. Patient gave an example of when he switched jobs after 10 years. He stated it took so long because of the fear of leaving the comfort zone and possibly going into something that wouldn?t benefit his family. Patient benefited from increased awareness of stages of changes and how emotions impact change. Will continue in IOP to promote gains, further combat distorted thinking, and improve daily functioning.] Narrative Note: []
--- NOTE | 2023-05-26 11:08 | BH.SGPN.GN ---
Behaviors/Verbalizations/Mental Status: []Pt alert and oriented, casually dressed and groomed. Eye contact good. Motor activity appropriate. Speech within normal limits. Affect congruent, mood content. Thoughts linear, logical, no signs of hallucinations or delusions. Client Response/Progress/Benefit: []Pt responded well to session, attentive. Did well to engage in and process activity. Pt worked with group to relate the strategies used to overcome barriers in the activity to managing change in own life. Pt identified a change he would like to work on making to improve his mental health. Declined however to share with the group. Pt identified that he is in the contemplation stage of change. Pt will continue IOP tx to further improve mood stability, promote continued identification and challenging of distortions, as well as prevent decompensation. Narrative Note: []
--- NOTE | 2023-05-28 09:00 | BH.SGPN.GN ---
Behaviors/Verbalizations/Mental Status: [] Eye contact is good. Motor activity is appropriate. Appearance is casual. Speech is Appropriate. Mood is depressed. Affect is flat. Thoughts are linear and logical. No evidence of psychosis. Reviewed daily check in sheet and no reports of suicidal ideations or intent. Client Response/Progress/Benefit: [] Pt participated at times during the group discussion. Attentive. Emotion for today is melancholy. Daily symptom tracker notes 2/5 for depression and anxiety. Pt states I've been low for the past couple days. He elaborated further on his depression and its impact on his functioning. He did not discuss possible triggers to low however did engage in identifying skills, strategies, and ways to challenge negative thoughts. Regression noted however currently motivated to use strategies to minimize impact of depression. Benefited from group support, encouragement, and feedback. Will continue in IOP to prevent decompensation/re-admission to psych unit, increase healthy coping, and stabilize mood. Narrative Note: []
--- NOTE | 2023-06-02 09:00 | BH.SGPN.GN ---
Behaviors/Verbalizations/Mental Status: [Patient was alert and oriented, appropriately dressed and groomed. Eye contact was good, motor activity normal, speech within normal limits. Affect congruent, mood content. Thoughts linear, logical, no signs of hallucinations or delusions. Reviewed Patients symptom tracker and the patient reports Reviewed Patients symptom tracker and the patient reports depressed mood, anxiety/panic attacks, aggravation/irritation/anger, self-harm urges, and risk/thoughts of suicide within patients normal base level.] Client Response/Progress/Benefit: [Patient was engaged and open to the discussion. Patient reported his mood to be ?content?.Patients first win was that he broke his phone and when he filed a claim on it, they sent him a check that was more then what the phone was worth so now he has extra money. The patient was also able to identify that this was necessarily a good thing that he did, but the outcome is helpful. The second win is that he has started reading a new book and playing the piano again. Patients stressor is that he has been suffering with from back pain the past couple of days and it has affected the rest of his body as well. Patient was interactive and respectful with other group members about their mental wins and stressors. Patient benefited from the discussion by listening to feedback and giving input on his peer?s stressors and mental health wins. Patient will continue with IOP treatment to help develop healthy skills, promote mood stability, and improve distress tolerance. ] Narrative Note: []
--- NOTE | 2023-06-02 10:10 | BH.SGPN.GN ---
Behaviors/Verbalizations/Mental Status: []Pt alert and oriented, casually dressed and groomed. Eye contact fair. Motor activity appropriate. Speech within normal limits. Affect constricted, mood euthymic. Thoughts linear, logical, no signs of hallucinations or delusions. Client Response/Progress/Benefit: []Pt receptive of session, actively engaged throughout AEB taking notes, providing some input, and listening to discussion. Appeared to connect with group topic of cognitive distortions and the impact of thought patterns on mental health, coping behaviors, and relationships. Pt reports utilizes distortions of labeling, all or nothing thinking, and overgeneralization. Pt appeared to benefit from gaining insight on distorted thinking patterns and how this impacts overall mental health. Will continue IOP tx to increase consistent use of healthy coping skills, challenge negative thoughts, and prevent decompensation.
--- NOTE | 2023-06-02 11:15 | BH.SGPN.GN ---
Behaviors/Verbalizations/Mental Status: [] Eye contact is good. Motor activity is within normal limits. Appearance is casual. Speech is Appropriate. Mood is content. Affect is congruent. Thoughts are linear and logical. No evidence of psychosis. Client Response/Progress/Benefit: [] Pt was a semi-active participant during group discussions and activity. Pt was placed in a smaller group and participated in quiz-show format in which small groups competed against each-other to answer questions based on identifying, challenging, and reframing cognitive distortions. Pt was engaged in the smaller group, participated in group interactions to brainstorm answers, and appeared to be comprehending cognitive distortions. Though at times appeared distracted by own thoughts and was more passive in engagement. Stated learning that ?Often times distorted thoughts are connected with one another?. Benefited from gaining further insight and awareness of cognitive distortions as well as practicing ways to reframe and challenge thoughts. Will continue in IOP to promote use of behavior activation skills, stabilize mood, and improve self-compassion. Narrative Note: []
--- NOTE | 2023-06-03 09:00 | BH.SGPN.GN ---
Behaviors/Verbalizations/Mental Status: [] Eye contact good, casually dressed, motor activity appropriate, speech normal rate and tone, mood euthymic, congruent affect, thoughts linear and intact, no evidence of delusions or hallucinations. Reviewed client?s symptom tracker, no risk for suicidal ideation, plan, or intent as of Client Response/Progress/Benefit: [] Client responded well to session, offering ideas to peers and providing encouragement. Client reports feeling good this morning. Client's discussed how yesterday was rough for him and today is a much better day. Client discussed how he was in pain yesterday and was able to take a moment to rest and practice self-care so he felt better today. Client was helpful in group with offering input to others and discussed habits he's formed to increase quality of sleep. Client mentioned reading before bed and having a wind down time to slow his pace and create a peaceful environment. Client will continue IOP tx to decrease decompensation and increase overall functioning. Narrative Note: []
--- NOTE | 2023-06-03 11:10 | BH.SGPN.GN ---
Behaviors/Verbalizations/Mental Status: [] Client alert and oriented, neatly dressed and groomed. Eye contact good. Motor activity appropriate. Speech within normal limits. Affect congruent, mood euthymic. Thoughts linear, logical, no signs of hallucinations or delusions. Client Response/Progress/Benefit: [] Client engaged participant AEB completing self-assessment worksheet and providing input throughout discussion. Client completed worksheet identifying current self-care practices and what self-care activities client wants to start using. Client selected financial self-care to begin practicing more consistently. Client plans to do this by setting time to go meet with with a financial recruiter and paying off his debts. Appeared to benefit from completing the self-care evaluation and gaining insights into current self-care practices, as well as identifying areas in which client would like to improve upon. Client will continue IOP tx to prevent decompensation, practice daily self care, and improve overall functioning. Narrative Note: []
--- NOTE | 2023-06-03 14:22 | BH.MDN_ITS ---
Multi-Disciplinary Note Note 45-min Individual: Time Started:: 10:00 Date: 06/03/23 Purpose of session/treatment goals addressed:: Purpose of session was to address goals 1 and 2 from MTP. Eye Contact:: Fair Motor Activity:: Appropriate Appearance:: Casual Speech:: Appropriate Mood:: Euthymic Affect:: Congruent Thoughts:: Linear, Logical and No evidence of hallucinations/delusions noted Staff Interventions:: thought challenging, psychoeducation on: (love languages/relationships), CBT techniques, strengths perspective, goal setting and taught coping skills Client Response:: Client reported things have been going good over the last week. Client stated there was an incident at work in which he felt like bad things Happening and over time it built up Friday and he became angry and threw his phone across the room. Client reported his phone hit the floor and cracked. Client stated after he threw his phone he immediately regretted it and was able to take a break to calm down. Client reported he is able to get his phone replaced and did not take his anger out on any body at work. Client reported this is the first event of anger in the last month. Therapist attempted to help client identify anger cycle but client stated he does not believe his anger is a problem and did not want to address it any further. Client stated he only has occasional blowups and never takes it on other people so does not see it to be an issue. Client reported things are going well besides some frustration from his . Client shared that his does not feel like client puts effort into meeting her needs. Client stated his really desires physical touch and he does not really like physical touch. Discussed the love languages which client stated that his love language is quality time. Client reported his 's love language is physical touch he struggles with making this need for her because he finds some touch to be uncomfortable and constricting. Client stated this is a constant argument between them throughout the 17 years of marriage. Client reported he is not sure what to do about the situation because does not really want to make himself engage in handholding or other physical touch that makes him feel comfortable. Client stated his biggest problem that he would like to focus on is his negative thought patterns. Client reported it was helpful to learn about distortions because now he has a label for his thoughts. However he still struggles with understanding how to challenge the thoughts. Therapist asked client to give a distortion that he often has. Client shared he often has the thought that anyth ing new that he tries he will feel at. Therapist attempted to help client challenge this disorder thought by asking if he can identify any successes he had in his life to help show evidence against the negative thought. Client stated he cannot identify any successes in his life. Client stated even though he buys his own house he does not see as a success because he struggles with paying the mortgage. Client reported he does not see his17 years of marriage as a success because he cannot identify why his stays with him. Therapist asked if he viewed getting a good job as a success and client stated it was not a success because it is a job he does not really like. Therapist encouraged client to think about how he view success because it seems to be a set up to constantly view himself as a failure. Client reported he is open to writing down his distorted negative thoughts and the thought log provided so next session can work together to challenge thoughts. Client Risks/Concerns:: Client denies suicidal ideation, plan and intention. Future oriented. Identifies family as protective factors. Progress Toward Goals/Plan:: Progress limited. Client struggles to follow through with homework assigned in individual sessions. Client's high sensations of self make it difficult to challenge his disorder thought patterns because he automatically looks at the negative and how he does not live up to his expectations. Client having a difficult time challenging or reframing his negative thought patterns which feeds into his depressed symptoms. Client to continue IOP level of care to increase consistent utilization of healthy coping skills, challenge distortions, and prevent decompensation. Time Stopped:: 10:50
--- NOTE | 2023-06-04 15:41 | BH.TPR ---
Treatment Plan Review Demographics Date of Admission:: 05/12/23 Date of Treatment Plan Review:: 06/04/23 Admitting Diagnoses:: 1. 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 Panic disorder 3. History of ADHD 4. Primary support and work issues Current Diagnoses:: 1. 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 Panic disorder 3. History of ADHD 4. Primary support and work issues Patient Status Patient's Response to Treatment:: Pt has struggled with attendance due to outside circumstances. When pt attends he at times will provide feedback during group sessions. Appears to listen to others throughout group. Pt has struggled with completing homework and reports limited application of skills/strategies outside treatment. Status of Current Problems and Symptoms: Ongoing problems. Client does note improvement in his anxiety and depression when compared to admission. Client does report mild depressed symptoms and mild to moderate anxious symptoms currently. Client struggles with low motivation, low energy, decreased concentration, and difficulty going to social situations. Client does note increased agitation recently. Client has been able to successfully return to work and has been able to manage his emotions better. Per client's DSM 5 admission scores she reports a 37% reduction in overall symptoms. Progress Problem #1: Problem Name:: Depression Status of Goals:: Obj 1 - progressing, continue work encouraged. Client is able to identify healthy coping skills like opposite action, open communication, and self-care. Client has struggled with consistently applying healthy coping skills and focus should be on consistency of skill use. Obj 2 - not met. Client is able to identify negative thought patterns, but struggles with independently challenging the thoughts. Team Recommendations:: Team recommends client to continue current goals and objectives to improve consistency of using skills and help improve client's confidence on challenging negative thoughts on his own. Per DSM 5 cross-cutting measure for depression his scores have decreased by 50% when compared to admission scores. Problem #2: Problem Name:: Anxiety Status of Goals:: Obj 1 - Client is able to identify healthy calming skills like belly breathing, grounding, and engaging senses. Client doesn't report utilization of these skills consistently. Obj 2 - met. Per client's DSM 5 cross-cutting measure his anxiety scores indicate a 58% reduction. Team Recommendations:: Team recommends client to continue current goals and objectives to improve consistency of using skills.
--- NOTE | 2023-06-06 09:00 | BH.SGPN.GN ---
Behaviors/Verbalizations/Mental Status: [Patient was alert and oriented, appropriately dressed and groomed. Eye contact was good, motor activity normal, speech within normal limits. Affect congruent, mood content. Thoughts linear, logical, no signs of hallucinations or delusions. Reviewed Patients symptom tracker and the patient reports depressed mood, anxiety/panic attacks, aggravation/irritation/anger, self-harm urges, and risk/thoughts of suicide within patients normal base level.] Client Response/Progress/Benefit: [ Patient was engaged and open to the discussion. Patient reported his mood to be ?Relaxed?. Patients first win was he got through his Thanksgiving without having too much anxiety which made him feel good. His second win was that although he did eat a lot of food and would normally feel bad about it, he stated he does not this year because he understands it?s a one-time thing. Patients stressor was that this weekend he is going to another thanksgiving which will be bigger, with less people he knows so it may cause an anxiety attack.Patient was interactive and respectful with other group members about their mental wins and stressors. Patient benefited from the discussion by listening to feedback and giving input on his peer?s stressors and mental health wins. Patient will continue with IOP treatment to help develop healthy skills, promote mood stability, and improve distress tolerance.] Narrative Note: []
--- NOTE | 2023-06-06 10:15 | BH.SGPN.GN ---
Behaviors/Verbalizations/Mental Status: []Pt alert and oriented, casually dressed and groomed. Eye contact good. Motor activity appropriate. Speech within normal limits. Affect congruent, mood euthymic. Thoughts linear, logical, no signs of hallucinations or delusions. Client Response/Progress/Benefit: []Pt was an active participant in group discussions. Attentive during psychoeducation on 4 types of conflict styles (Competing, Collaborating, Avoiding, and Accommodating). Worked with group to define conflict and identify how conflict can be beneficial. With peers, pt identified barriers to addressing or managing conflict which included: not wanting to hurt others, unmanaged emotions, assumptions, and cognitive distortions. Pt believes they most often use avoiding and accommodating types when faced with conflict. Pt stated this leads to ?avoiding most fights but then my problems fester.??Benefited from group due to increase insight and awareness of benefits to conflict, conflict styles, and obstacles to managing conflict. Will continue in IOP to reduce distorted thinking patterns which reinforce depression, continue to promote self-care skills, and promote ongoing mood stability.? Narrative Note: []
--- NOTE | 2023-06-06 11:10 | BH.SGPN.GN ---
Behaviors/Verbalizations/Mental Status: []Pt alert and oriented, casually dressed and groomed. Eye contact good. Motor activity appropriate. Speech within normal limits. Affect congruent, mood euthymic. Thoughts linear, logical, no signs of hallucinations or delusions. Client Response/Progress/Benefit: [] Pt was an active participant in group discussions and activity. Attentive during psychoeducation. Along with peers was able to reflect on what conflict resolution skills can be useful outside of IOP. Pt chose to continue to work on the conflict resolution skills of expressing his feeling with words and not stonewalling. Benefited from practicing and learning conflict resolution skills. Will continue in IOP to reduce avoidance behaviors, increase self-confidence, and reduce depressive symptoms. Narrative Note: []
--- NOTE | 2023-06-11 09:05 | BH.SGPN.GN ---
Behaviors/Verbalizations/Mental Status: [] Eye contact is good. Motor activity is appropriate. Appearance is casual. Speech is Appropriate. Mood is euthymic. Affect is full. Thoughts are linear and logical. No evidence of psychosis. Reviewed daily check in sheet and no reports of suicidal ideations or intent. Client Response/Progress/Benefit: [] Pt was an active participant in group discussion. Attentive. Emotion for today is motivated. Daily symptom tracker notes 07/18 for depression. Several mental health wins reported stating I'm trying to focus on getting things done. He shared some goals regarding improving his communication with his daughters which he hopes will improve their relationships. He talked at length with peers about cultivating an environment where his daughters feel comfortable to come to him with any concerns. Was vulnerable with his parenting fears and was open to suggestions from peers. Progress noted per pt report. Reports taking action on concerns rather than ruminating. Benefited from group support, encouragement, and feedback. Will continue in IOP to prevent decompensation/re-admission to psych unit, increase healthy coping, and stabilize mood. Narrative Note: []
--- NOTE | 2023-06-11 10:10 | BH.SGPN.GN ---
Behaviors/Verbalizations/Mental Status: []Eye contact is fair. Motor activity is appropriate. Appearance is casual. Speech is Appropriate. Mood is euthymic. Affect is congruent. Thoughts are linear and logical. No evidence of psychosis. Client Response/Progress/Benefit: []Pt was an active participant in group discussions AEB listening attentively to others and providing feedback at times. Participated in and was engaged during experiential activity. Able to relate activity to group topic of FOF. Engaged during interactive discussion on what failure means to the group in which peers identified and defined failure. Group was able to identify impact of fear of failure on mental health. Attentive during interactive discussion on the role that FOF plays in mental wellness, depression, anxiety, and growth. Pt reported fear of failure has kept pt from finishing school and making connections at work. Benefited from increased awareness of how the role that FOF plays in mental health and decision-making. Will continue in IOP to increase healthy coping, reduce negative thinking patterns, and improve self-compassion.? Narrative Note: []
--- NOTE | 2023-06-11 11:42 | PCM.BH.PN ---
Progress Note Progress Note: History of Present Illness/Interim History: The patient is a 37-year-old male with a history of depression, anxiety and PTSD who is seen in follow-up at the [facility] behavioral health IOP. I last saw the patient 4 weeks ago and at that time hydroxyzine was added to help with his panic attacks and severe anxiety. According to the staff the patient has been engaged in the program and has been making progress. He feels he is being increasingly able to use skills he is learning to combat his negative thinking. He is working full-time now and able to function well at work. He feels he is much less depressed overall although he still has occasional down moments. He is having panic attacks less than once a week now. He denies passive thoughts of , suicidal ideation, plan for suicide, homicidal ideation, hallucinations or delusions. Current Psychiatric Medications: [] Seroquel 50 mg p.o. nightly (x 5 weeks); Wellbutrin XL 150 mg p.o. every morning (x 5 weeks); hydroxyzine 25 mg p.o. daily up to 3 times a day (x 4 weeks): The patient takes it every other day when he has severe anxiety or panic attack and it has been quite helpful. Mental Status Examination: [] The patient is an obese 37-year-old man with a raman who is casually dressed and groomed with good hygiene. He is cooperative during the interview. He has no psychomotor agitation or retardation. He is ambulatory with a normal gait. Eye contact is good and speech is normal rate and rhythm and fluent with no pressure. Mood is depressed. Affect is constricted. Thought process is goal-directed and organized. Thought content: There is evidence still of negative rumination and feelings of blame over his father's suicide. There is no evidence of passive thoughts of , suicidal ideation, plan for suicide, homicidal ideation, hallucinations or delusions. Reality testing is intact. Judgment is intact. Insight is good. Impulsivity is moderate. Diagnoses: [] 1. Major depressive disorder, recurrent, severe without psychosis (improving) 2. Panic disorder 3. History of ADHD 4. Primary support and work issues Plan: [] The patient will continue the IOP at [facility] as the structure, support, education and group therapy will hopefully prevent worsening of the patient's symptoms which could require rehospitalization. He felt safe during the interview and if it anytime he does not feel safe he will let us know or go to the emergency room. No medication changes were made today. He will continue to follow-up with his outpatient providers and I will see the patient in follow-up while he is in the IOP.
--- NOTE | 2023-06-11 14:06 | BH.MDN ---
Multi-Disciplinary Note Note 30-min Individual: Time Started:: 11:05 Date: 06/11/23 Purpose of session/treatment goals addressed:: Purpose of session was to address goals 1 and 2 from MTP. Eye Contact:: Good Motor Activity:: Appropriate Appearance:: Casual Speech:: Appropriate Mood:: Euthymic Affect:: Congruent Thoughts:: Linear, Logical and No evidence of hallucinations/delusions noted Staff Interventions:: thought challenging, CBT techniques, strengths perspective, goal setting and other (reviewed healthy coping skills) Client Response:: Client reported things have been going really well for him over the last week. Client stated there have been some stressful moments while at work, but he was been able to manage his frustrations better. Client reported he has not had any more anger outbursts. Client stated at work he continues to struggle with thoughts that he won't be able to advance in his job until he gets a degree. However, client reported he has better awareness of his negative thoughts and has been trying to look at the positive of situations. Client reported feeling excited today because last night he had a heart to heart with his middle child because there has been some issues with constant conflict. Client stated he felt like the conversation went really well with his daughter and was happy with himself for taking steps to be more open with her. Client reported this morning was the first time in a long time that neither of his daughters gave difficulty with going to school. Client it made him feel positive that his talk with his daughter last night helped. Client stated he did not accomplish goals from previous individual sessions of doing an accomplishment log or writing down his negative thoughts so therapist could help him reframe in session. Client reported he just struggles with remembering to do things and often procrastinates. Client stated he did not use the technique discussed in last session of setting a timer on his phone. Client stated he will try the strategies over the next week. Risks/Concerns:: Denies suicidal ideation, plan, or intention to date. future oriented. Progress Toward Goals/Plan:: Client reports progress with his communication by having an open conversation with his daughter because in the past that is something he wouldn't have done. Client states improved ability to manage emotions while at work. Client reports overall his mood has been improved over the last week. Client had one anger outburst last weekend while at work in which he threw and broke his phone out of frustration. Client reports no anger outbursts since that one situation and reports he doesn't believe anger is an issue for him. Client to continue IOP to reinforce healthy coping skills, challenge distortions, and increase follow through with applying skills outside treatment environment. Time Stopped:: 11:30
== END 2023-06-12 23:59 ==
LOC: BHIOP 06:50
PROVIDERS: PCP Family Medicine; Referring Provider Psychiatry & Neurology Psychiatry; Visit Provider Psychiatry & Neurology Psychiatry
DX: F33.2 Major depressive disorder, recurrent severe without psychotic features (principal); F41.0 Panic disorder [episodic paroxysmal anxiety]; F90.9 Attention-deficit hyperactivity disorder, unspecified type
CPT/HCPCS: S9480; 90832; 90834; 90853

== ENCOUNTER → 2023-05-20 | Outpatient (CLI) | payer OTHER, SELFPAY ==
--- NOTE | 2023-05-20 16:53 | CT_ITS ---
INDICATION: renal mass EXAMINATION: CT ABDOMEN AND PELVIS WITH CONTRAST - CT Abdomen And Pelvis W/ Contrast Injection TECHNIQUE: Helically acquired images were obtained of the abdomen and pelvis following IV contrast. A radiation dose optimization technique was used for this scan. IV Contrast dosage and agent: 100 mL Isovue-300 Oral contrast: Administered. COMPARISON: Renal ultrasound May 10, 2023, CT August 16, 2018. FINDINGS: LOWER CHEST: Lung bases are clear. No cardiomegaly or pericardial effusion. LIVER: Heterogeneous hypoattenuation in the liver compatible with steatosis. No focal mass. GALLBLADDER AND BILIARY TREE: No calcified gallstones. No gallbladder distension or wall edema. No intra- or extrahepatic biliary ductal dilation. PANCREAS: No focal cystic or solid mass. SPLEEN: Calcified sequela of prior granulomatous disease. ADRENAL GLANDS: No nodules. KIDNEYS AND URETERS: Lobulated bilateral renal cortex without change from August 16, 2018 correlating with the area of concern on ultrasound. No evidence of cystic or solid renal mass. No visible nephrolithiasis. No hydronephrosis. No perinephric inflammation. Unremarkable ureters. . PERITONEUM: No ascites or free air. No other fluid collection. BOWEL: No evidence of acute appendicitis. No stomach or bowel distension. No focal inflammatory change. LYMPH NODES: No enlarged mesenteric or retroperitoneal lymph nodes. VESSELS: Aorta is non-dilated. URINARY BLADDER: Unremarkable. ABDOMINAL WALL: [Small fat-containing umbilical hernia without inflammation.. BONES: No lytic or blastic abnormality. CT/Abdomen/Pelvis WITH Contrast IMPRESSION: No evidence of renal cystic or solid mass. Lobulated renal cortex accounts for appearance on ultrasound and is unchanged from August 16, 2018 Heterogeneous hepatic steatosis. Sequela of prior granulomatous disease. Small fat-containing umbilical hernia without inflammation Electronically Signed: Michele Handy MD at 9:40 EST ,
[2023-05-20 17:17] LABS: EGFR FINGERSTICK > 60.0000 mL/min (>60)
== END | disposition home or self-care (01) ==
LOC: CT 16:51
PROVIDERS: PCP Family Medicine; Referring Provider Family Medicine; Visit Provider Family Medicine
DX: N28.89 Other specified disorders of kidney and ureter (principal)
CPT/HCPCS: 74177; Q9967

== ENCOUNTER → 2023-05-28 | Outpatient (CLI) | payer OTHER, SELFPAY ==
--- NOTE | 2023-05-23 10:15 | BH.SGPN.GN ---
Behaviors/Verbalizations/Mental Status: [ Patient was alert and oriented, casually dressed and groomed. Eye contact good, motor activity normal, speech within normal limits. Affect congruent, mood content. Thoughts linear, logical, no signs of hallucinations or delusions. ] Client Response/Progress/Benefit: [Patient was open and participated in group discussions. Attentive during psychoeducation on behavior activation. Participated during the activity. Interactive group discussion on behavior activation in which group verbalized different up and down activities and how they can positively or negatively impact their actions. Patient stated some of his ?up? activities are listening to music, dipti, and driving. Patient stated some of his ?down? activities are ?vegetating?, shopping, and snacking. Patient benefited from increased awareness of stages of changes and how emotions impact change. Will continue in IOP to promote gains, further combat distorted thinking, and improve daily functioning.] Narrative Note: []
--- NOTE | 2023-05-28 08:03 | RDU_ITS ---
Reason For Study: HTN Right Renal Artery Left Renal Artery Right renal artery proximal Left renal artery ostium 112.1/42.5 74.9/26.2 PSV/EDV. PSV/EDV. Right renal artery mid 59.9/24.3 Left renal artery proximal PSV/EDV PSV/EDV. 65.8/28.5 . Right renal artery distal 56.6/25.4 Left renal artery mid 46.6/22.8 PSV/EDV. PSV/EDV . Right Renal Parenchyma Left renal artery distal 82.8/42.5 Upper Pole Medula 46.8/22.1 PSV/EDV. PSV/EDV. Left Renal Parenchyma Right upper pole medulla EDR 0.5 . Left upper pole medulla 27.1/12.4 Right upper pole medulla R.I. PSV/EDV . 0.53 . Left upper pole medulla EDR 0.5 . Upper Kirit Cortx 24.1/7.5 PSV/EDV. Left upper pole medulla R.I. 0.54 . Right upper pole cortex EDR 0.3 . UP Cortex 18.5/8.7 PSV/EDV. Right upper pole cortex R.I. 0.69 . Left upper pole cortex EDR 0.5 . Right lower Pole medulla 34.5/11.8 Left upper pole cortex R.I. 0.53 . PSV/EDV . Left lower Pole medulla 22.2/9.9 Right lower pole medulla EDR 0.3 . PSV/EDV . Right lower pole medulla R.I. Left lower pole medulla EDR 0.4 . 0.66 . Left lower pole medulla R.I. 0.55 . Lower Pole Cortex 19.2/8.7 PSV/EDV. Lower Pole Cortx 20.4/10.6 PSV/EDV. Right lower pole cortex EDR 0.5 . Left lower pole cortex EDR 0.5 . Right lower pole cortex R.I. 0.54 . Left lower pole cortex R.I. 0.48 . Right Renal Hilar Left Renal Hilar Right Hilar avg 94.8/48.7 PSV/EDV. LT Hilar avg 124.9/57.5 PSV/EDV . Right hilar acceleration time 30 Left hilar acceleration time 40 m/sec. m/sec. Right Renal Dimensions Left Renal Dimensions Right kidney size 12.29 cm . Left kidney size 11.47 cm . Right cortical dimension 2.00 cm . Left cortical dimension 1.75 cm . Aorta Proximal abdominal aorta 1.97 x 2.00 cm . Proximal abdominal aorta peak systolic velocity is 119.8 cm/sec . Distal abdominal aorta 1.91 x 1.88 cm . Distal abdominal aorta peak systolic velocity is 110.7 cm/sec . Procedures Technically difficult due to patient body habitus. Limited veiws obtained. VL/Renal Artery Duplex Ultrasound Interpretation Summary Right renal artery patent with normal velocities and no evidence of stenosis. Left renal artery patent with normal velocities and no evidence of stenosis. Right renal vein patent Left renal vein patent Right kidney normal in size Left kidney normal in size Ordering Physician: Chaz Nguyễn Referring Physician: Chaz Nguyễn Performed By: Lawrence Salgado RVT
== END | disposition home or self-care (01) ==
LOC: CVS 07:56
PROVIDERS: PCP Family Medicine; Referring Provider Family Medicine; Visit Provider Family Medicine
DX: I10 Essential (primary) hypertension (principal)
CPT/HCPCS: 93975

== ENCOUNTER 2023-06-13 07:09 | Outpatient (RCR) | payer OTHER, SELFPAY ==
[2023-06-13 00:14] VITALS: BP 158/108; PULSE 80
--- NOTE | 2023-06-16 09:05 | BH.SGPN.GN ---
Behaviors/Verbalizations/Mental Status: [] Pt alert and oriented, Casually dressed and groomed. Eye contact good. Motor activity appropriate. Speech within normal limits. Affect congruent, mood euthymic. Thoughts linear, logical, no signs of hallucinations or delusions. Reviewed pt?s symptom tracker, pt reports no suicidal ideation or intention. Client Response/Progress/Benefit: [] Client responded well to session as evidenced by listening attentively to others, providing feedback, and processing with group. Per symptom tracker client reported a 1/5, with 5 being severe, for depressed mood and a 2/5 for anxiety. Client reported mental health positive as taking time to finish up some [employer] shopping over the weekend for finals and indicated feeling more prepared as a result. Client stated he really enjoys the holidays but in the past financial concerns have made them difficult for him to enjoy. Additional positive identified as challenging himself to walk-away rather than engage in unnecessary conflict over the weekend. Client reported current stressor as trying to communicate with. 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 Client seemed to benefit from support from others. Client to continue IOP to build coping skill repertoire, improve functioning, and prevent decompensation. Narrative Note: []
--- NOTE | 2023-06-16 10:15 | BH.SGPN.GN ---
Behaviors/Verbalizations/Mental Status: [ Patient was alert and oriented, casually dressed and groomed. Eye contact was good, motor activity normal, speech within normal limits. Affect congruent, mood content. Thoughts linear, logical, no signs of hallucinations or delusions. ] Client Response/Progress/Benefit: [Patient was engaged and open to the discussion and appeared to respond well to the group. Patient used active listening and gave feedback during group discussion. Patient stated that he continues to use negative coping skills because it?s a habit and sometimes does not realize what he?s doing is unhealthy. Patient appeared to benefit from increasing awareness of different perspectives and how they can affect mental health. Patient will continue IOP treatment to improve daily functioning, emotion management, and prevent decompensation.] Narrative Note: []
--- NOTE | 2023-06-16 11:05 | BH.SGPN.GN ---
Behaviors/Verbalizations/Mental Status: []Pt alert and oriented, casually dressed and groomed. Eye contact fair. Motor activity appropriate. Speech within normal limits. Affect constricted, mood euthymic. Thoughts linear, logical, no signs of hallucinations or delusions. Client Response/Progress/Benefit: [] Pt responded well to session, taking notes and contributing. Group discussed the different categories of coping skills which included distraction, emotional release, grounding, self-love, and thought challenging.? Pt participated in creating a coping skills ?menu? from the five categories of coping skills. Pt's coping skill menu included: reading, 5 senses, talking to others, affirmations, and wins journal. Appeared to benefit from increasing repertoire of healthy coping skills. Will continue IOP tx to increase consistent use of coping skills outside treatment environment, challenge distortions, and prevent decompensation.
--- NOTE | 2023-06-17 09:05 | BH.SGPN.GN ---
Behaviors/Verbalizations/Mental Status: [] Eye contact is good. Motor activity is appropriate. Appearance is casual. Speech is Appropriate. Mood is euthymic. Affect is full. Thoughts are linear and logical. No evidence of psychosis. Reviewed daily check in sheet and no reports of suicidal ideations or intent. Client Response/Progress/Benefit: [] Pt was an active participant in group discussion. Attentive. Daily symptom tracker notes 2/5 for irritability and /5 for anxiety. States I'm feeling good . Completing tasks and responsibilities stating I'm addressing rather than avoiding . In the past he would often ignore certain tasks which in the short term decreased irritability and frustration however in the long-term it led to numerous consequences. Also reports improved focus and concentration I'm reading more . States that he continued to be overwhelmed with bouts of low self-esteem however overall is managing through these with healthy coping skills. Progress noted per pt report. Will continue in IOP to prevent decompensation/re-admission to psych unit, increase healthy coping, and to stabilize mood. Narrative Note: []
--- NOTE | 2023-06-17 10:10 | BH.SGPN.GN ---
Behaviors/Verbalizations/Mental Status: [] Eye contact is good. Motor activity is appropriate. Appearance is casual. Speech is Appropriate. Mood is euthymic. Affect is congruent. Thoughts are linear and logical. No evidence of psychosis. Client Response/Progress/Benefit: [] Pt was an active participant during group discussions and group activities. Attentive during psychoeducation. Engaged during activity in which they identified which type of foods (i.e. carbs, sugar, salt, fast food, caffeine, etc) they seek out when sad, tired, angry, rushed, anxious, etc. Pt was able to identify the impact that certain foods have on their mental health through group example which was beneficial. Identified how he turns to foods that are high is sugar or carbs when stressed which long-term maintains his stress and reinforces depression. Benefited from increased awareness of the connection between nutrition and mental health. Will continue in IOP to prevent decompensation, increase healthy coping, and continue to improve functioning. Narrative Note: []
--- NOTE | 2023-06-17 13:56 | BH.MDN_ITS ---
Multi-Disciplinary Note Note 30-min Individual: Time Started:: 11:20 Date: 06/17/23 Purpose of session/treatment goals addressed:: Purpose of session was to address goals 1 and 2 from MTP. Eye Contact:: Fair Motor Activity:: Appropriate Appearance:: Casual Speech:: Appropriate Mood:: Euthymic Affect:: Constricted Thoughts:: Linear, Logical and No evidence of hallucinations/delusions noted Staff Interventions:: thought challenging, motivational interviewing, CBT techniques, strengths perspective and other (problem solving) Client Response:: Client stated overall he is continuing to feel better with his mental health. Client identified his depression to be a 2 out of 10 with 10 being severe. Client reported his anxiety is a 5 out of 10. Client reported feels like his anxiety has been spiked due to experiencing several complex of the last couple of days. Client stated he did have a conflict at work which increases anxiety and he does not like people to be upset with him. Client reported he was able to directly address the issue with the fellow coworker and resolved that. Client stated he also had a conflict with his cousin but was able to work it out with his cousin by talking about the situation and verbalizing his thoughts and feelings. Client stated despite knowing in both situations there will have a miscommunications which is what had caused the conflict he still felt extremely anxious because he does not like pe ople being upset with him even when he did not do anything wrong. Client reported that he does notice improvement with his ability to manage conflicts because in the past he often would avoid talking about situations that make him uncomfortable but recognizes when he avoided it would often make the situation worse. Client reported in the last 2 days his daily functioning at home has been slacking . Client noted some decrease in his motivation level but is still doing some things to be helpful. Client stated in regards to his treatment progress so far in IOP he does feel like he is progressing and learning a lot through group programming. Client reported will continue to work on challenging his negative thoughts and looking at what he has accomplished. Risks/Concerns:: Denies suicidal ideation, plan, and intention. Future oriented. Progress Toward Goals/Plan:: Client reports decrease in depressed symptoms in the last week. Client stated increase in anxious symptoms this week due to having several conflicts. Client reported conflict is often a trigger to his anxiety because he worries what others think about him. Client noted progress though and how he was able to manage the conflict because in the past he often would avoid and not deal with it but lately has been better with communicating his thoughts and feelings and addressing the conflict directly. Plan is for client to continue IOP to build confidence, continue to work on challenging negative thoughts, improve consistent application of skills outside treatment environment, and prevent decompensation. Time Stopped:: 11:50
--- NOTE | 2023-06-20 09:00 | BH.SGPN.GN ---
Behaviors/Verbalizations/Mental Status: []Eye contact is good. Motor activity is appropriate. Appearance is casual. Speech is Appropriate. Mood is euthymic. Affect is congruent. Thoughts are linear and logical. No evidence of psychosis. Reviewed daily check in sheet and no reports of suicidal ideations or intent. Client Response/Progress/Benefit: []Pt responded well to session, attentive and providing supportive statements. Pt reports feeling happy this morning and shared that he is in a good mood today. Pt shared he has been noticing progress in his thinking patterns and his big win today was that he applied for a new role at work even though he felt like I didn't meet all the requirements. Pt stated his all or nothing thinking and fear of failure has kept pt from applying himself and trying for new opportunities, so pt is very proud of himself. Pt also plans to spend time with his kids tonight which he is looking forward to. Pt stated his stressor today is that he has paperwork he has to accomplish this weekend, but pt plans to use opposite action to just power through. Pt appeared to benefit from reflecting on his wins and connecting with peers. Pt will continue IOP tx to promote mood stability and reinforce use of healthy coping skills. Narrative Note: []
--- NOTE | 2023-06-20 10:05 | BH.SGPN.GN ---
Behaviors/Verbalizations/Mental Status: []Eye contact is good. Motor activity is appropriate. Appearance is casual. Speech is Appropriate. Mood is content. Affect is congruent. Thoughts are linear and logical. No evidence of psychosis. Client Response/Progress/Benefit: []Pt was an active participant in group discussion. Attentive during psychoeducation on the CBT [place] (Thoughts, Behaviors, Emotions). Engaged in group discussion on how thoughts and behaviors can contribute to maintaining adverse feelings, such as depression, anxiety, and irritability. Completed worksheet in which pt identified a thought that is keeping them stuck or is in obstacle to increased mental wellness. The thoughts that pt identified were ?I don?t belong?, ?I?m going to fail?, and ?I?m not good enough?. Pt benefited from increased awareness of the basis of CBT therapy as well as specific thoughts that are impacting pt' progress. Will continue in IOP to reduce sx, prevent decompensation, and to increase healthy coping skill application. Narrative Note: []
--- NOTE | 2023-06-20 11:00 | BH.SGPN.GN ---
Behaviors/Verbalizations/Mental Status: []Pt alert and oriented, casually dressed and groomed. Eye contact good. Motor activity appropriate. Speech within normal limits. Affect congruent, mood content. Thoughts linear, logical, no signs of hallucinations or delusions. Client Response/Progress/Benefit: []Pt responded well to session, contributing to discussion when prompted, and somewhat attentive throughout discussion. Pt identified a negative thought that has kept them stuck. Pt's thought was I fail at everything I try?. Pt reported when they think this way, pt gets disheartened and hopeless which leads to giving up or not trying to begin with. Pt worked to reframe the thought by finding more rational, realistic ways to look at the thoughts and then processed them within group setting. Pt reframed the thought to ?I can't begin to succeed if I don't try to begin with?. Pt appeared to benefit from practicing challenging negative thinking. Pt will continue IOP tx to prevent decompensation, increase behavior activation skills, and reduce isolation. ? Narrative Note: []
--- NOTE | 2023-06-25 09:00 | BH.SGPN.GN ---
Behaviors/Verbalizations/Mental Status: [] Pt alert and oriented, casually dressed and groomed. Eye contact good. Motor activity appropriate. Speech within normal limits. Affect congruent, mood euthymic. Thoughts linear, logical, no signs of hallucinations or delusions. Reviewed pt?s symptom tracker, pt reports no suicidal ideation or intention. Client Response/Progress/Benefit: [] Client responded well to session as evidenced by listening attentively to others, providing feedback, and processing with group. Per symptom tracker client reported a 0/5, with 5 being severe, for depressed mood (which is improved for pt), a 0/5 for anxiety, and a 1/5 for irritability. Client reported mental health positive as applying for a new position within his company and speaking to his employer about this possibility. Pt reports this was out of his comfort zone but he feels proud of himself for following through. Additional win noted as planning to take his kids to see [employer] for the first time and shared feeling excited for them to experience this in person. Denies experiencing any current stressors and noted that I'm in a really good mood . Pt does continue to struggle with identifying skills to maintain the improvements in his mood and perspective which may impede ability to maintain gains. Client seemed to benefit from support from others and identifying current positives. Client to continue IOP to build coping skill repertoire, maintain mood stability, and prevent decompensation. Narrative Note: []
--- NOTE | 2023-06-25 10:15 | BH.SGPN.GN ---
Behaviors/Verbalizations/Mental Status: []Pt alert and oriented, neatly dressed and groomed. Eye contact good. Motor activity appropriate. Speech within normal limits. Affect congruent, mood euthymic. Thoughts linear, logical, no signs of hallucinations or delusions. Client Response/Progress/Benefit: [] Pt was an active participant in group discussions and experiential activity. Participated during interactive discussion in which group worked together to define resilience (i.e. continuing to bounce back from hardship; willingness to keep trying) and what makes being resilient hard. Participated during interactive discussion on if resilience is something we are born with or can learn. Provided appropriate thoughts and feedback. Able to relate the experiential activity back to topic of resilience. Worked well in small groups to identify strategies to build resilience. Benefited from increased awareness of the role of resilience in mental health and ways to build resilience. Will continue in IOP to promote mood stability, increase self-compassion, and reinforce healthy coping skills. Narrative Note: []
--- NOTE | 2023-06-25 11:15 | BH.SGPN.GN ---
Behaviors/Verbalizations/Mental Status: [] Eye contact is good. Motor activity is appropriate. Appearance is casual. Speech is Appropriate. Mood is euthymic. Affect is full. Thoughts are linear and logical. No evidence of psychosis. Client Response/Progress/Benefit: [] Pt was an active participant in group discussions. Participated during interactive discussions and in experiential activity with peers. Pt identified 3 resiliency traits they have and how these traits currently help them. Pt identified Maintaining a hopeful outlook stating I'm trying to better myself and do new things ; Take decisive action b/c rather than detaching from problems he sought help through IOP; and Moving towards goals and he is working on life growth . Benefited from practicing resiliency traits during experiential activity and identifying personal resiliency factors.Will continue in IOP to prevent decompensation, stabilize mood, increase healthy coping, and improve functioning. Narrative Note: []
--- NOTE | 2023-06-26 10:31 | BH.MDN_ITS ---
Multi-Disciplinary Note Note 45-min Individual: Time Started:: 08:10 Date: 06/26/23 Purpose of session/treatment goals addressed:: Purpose of session was to address goals 1 and 2 from MTP. Eye Contact:: Fair Motor Activity:: Appropriate Appearance:: Casual Speech:: Appropriate Mood:: Euthymic Affect:: Congruent Thoughts:: Linear, Logical and No evidence of hallucinations/delusions noted Staff Interventions:: CBT techniques, discharge planning, strengths perspective and other (Role-playing for job interview) Client Response:: Client reported things are continuing to go well at work and at home. Client stated he mostly feels less depressed majority of his weeks. Client stated when he does feel down or depressed mood. Is able to recover faster. Client reported he has been working on improving his relationships with his daughters at home by being more communicative and checking in with him. Client stated he really thinks putting effort into his home relationships has been helpful to his mental health as well. Client stated he is feeling excited and nervous this morning because he got an email from work telling him that they would like to interview him for a new position that he applied for. 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 Client reported he is nervous about the interview because he historically has struggled with answering the questions because he often would blink. Client open to role-playing and practicing a mock interview in session. Client struggled initially with identifying how to respond to certain questions about his strengths and what he can bring to the job. After little practice client appeared to be more confident in his responses. Client reported he does not feel as anxious right now because he recognizes even if he does not get this job he still has a job and the schedule works better for him when he returns to school in the spring. Client worked with therapist to challenge some of his anxious thoughts about returning to school with fear of failure being the biggest barrier. Client agreed if he chooses to not follow through with schooling and will likely keep him stagnant in his workplace. Client stated he would like to continue IOP next week and discharged the following week to allow himself time to get in more group since he has missed a couple sessions due to work schedule. Client stated he is set up for an intake at an outpatient mental health facility in [facility] in which he will establish psychiatry and counseling there. Risks/Concerns:: Denies suicidal ideation, plan, intent. Future oriented. Progress Toward Goals/Plan:: Progress noted as client continues to report decreased depression and improve daily functioning at work and home. Client does note a spike in anxiety after finding out he has an interview but recognizes this is situational based and rational anxiety. Client states he does have moments in which she feels down or depressed but has been able to work through those moods and improve will recover faster. Client continues to struggle with following through with homework provided in individual session but seems to be applying the skills and strategies learned in some situations outside of treatment. Plan is for client to discharge in 2 weeks from [facility] to continue reinforcement of healthy coping skills, continue to build confidence, and prevent decompensation. Time Stopped:: 08:50
--- NOTE | 2023-06-30 10:10 | BH.SGPN.GN ---
Behaviors/Verbalizations/Mental Status: [] Eye contact is good. Motor activity is appropriate. Appearance is casual. Speech is Appropriate. Mood is content. Affect is congruent. Thoughts are linear and logical. No evidence of psychosis. Client Response/Progress/Benefit: [] Pt was an active participant in group discussions. Attentive during psychoeducation on the 4 communication styles (Passive, Passive-Aggressive, Aggressive, and Assertive) and the obstacles to effective communication. Contributed during interactive discussion on the benefits of communicating effectively which included; having one's needs met, building connection with others, decreases stress and uncertainty, improved relationships, encouragement/increased motivation, increased trust, and increased understanding of others. Worked well in small group in which pt and peers identified the benefits and disadvantages to the different communication styles. Benefited from increased understanding of communication styles and how these can impact effective communication. Pt reports identifying most with assertive communication but feels he does not always effectively utilize it. Will continue in IOP to prevent decompensation, maintain mood stability, and continue to improve functioning. Narrative Note: []
--- NOTE | 2023-06-30 10:42 | BH.MDN_ITS ---
Multi-Disciplinary Note Note 30-min Individual: Time Started:: 09:35 Date: 06/30/23 Purpose of session/treatment goals addressed:: Purpose of session was to address goals 1 and 2 from MTP. Eye Contact:: Good Motor Activity:: Appropriate Appearance:: Neat Speech:: Appropriate Mood:: Euthymic Affect:: Full Thoughts:: Linear, Logical and No evidence of hallucinations/delusions noted Staff Interventions:: CBT techniques, rapport building, discharge planning and strengths perspective Client Response:: Client reported weekend went well overall. Client stated he did end up having an interview on after our individual session. Client stated he believes the interview went really well and is hopeful he will get chosen for the new position. Client reported he worked all weekend and was able to handle being at work. Client stated one of the nights he had to sit down with his children and that it was significant progress for him because he was using the things he is learned in [facility] to help his family with managing conflict that they are having. Client stated he believes this is significant treatment progress for him because he communicated effectively with, was supportive, and try to problem solve to make things better. Client stated he is starting to notice more and more how much improvement he has made. Client stated he can note improved confidence in himself because initially he did not apply for the new position at work because he did not think that he had the qualifications. Client reported after the job posting had been out there for several weeks and he was working on himself he realized that he does have a lot to offer which helped him apply for the job. Client stated he is continuing to work on continued a positive outlook and challenging any negative thoughts. Risks/Concerns:: Denies suicidal ideation, intention, and plan. Future oriented. Family identified as protective factor. Progress Toward Goals/Plan:: Progress noted with client reporting decrease depression, decrease anxiety, decrease anger, and improve daily functioning. Client has been able to return back to work and manage conflict throughout his workdays, more consistently. Client reporting improved communication at home and improve daily functioning. Client stated he has had a few moments in which she feels down or depressed but recognizes he does not stay in a depressed state as long. Client has been able to challenge his negative perspective and see things in a more positive light which has helped and follow through with his task and goals. Client recently applied for a new position at work which demonstrates improvement with his confidence and desire for continued growth. Plan is for client to discharge from [facility] next week. Client has an intake appointment for counseling and psychiatry in July 2023. Client expresses interest in beginning the [facility] aftercare program in July 2023. Time Stopped:: 10:00
--- NOTE | 2023-07-01 11:10 | BH.SGPN.GN ---
the communication styles he commonly uses. He wants to work on being more assertive stating I'm mostly assertive however my needs don't usually get met. I tend to switch to wrong style when I need to switch. I need to get better at this . Benefited from practicing in the moment communication skills as well as increased awareness of communication styles commonly used. Will continue in IOP to prevent decompensation/re-admission to psych unit, increase healthy coping, and stabilize mood. Narrative Note: []
--- NOTE | 2023-07-08 10:17 | BH.SGPN.GN ---
Behaviors/Verbalizations/Mental Status: [Patient was alert and oriented, casually dressed and groomed. Eye contact was good, motor activity normal, speech within normal limits. Affect congruent, mood content. Thoughts linear, logical, no signs of hallucinations or delusions. ] Client Response/Progress/Benefit: [Patient was a mostly passive participant in the group discussions, however, did demonstrate non-verbal active listening AEB taking notes. Attentive during psychoeducation Goal Setting. Participated during the discussion on common barriers (procrastination, low motivation, unrealistic expectations, and fear of failure) and benefits (increased confidence, motivation, sense of purpose, and improved mood stability) of effective goal setting and completion. Patient reports struggling specifically with barriers of negative thoughts and low motivations. Benefited from increased awareness of mental health benefits of goals as well as psychoeducation on SMART goal criteria. Will continue in IOP to promote gains, further combat distorted thinking, and improve daily functioning.] Narrative Note: []
--- NOTE | 2023-07-08 11:05 | BH.SGPN.GN ---
Behaviors/Verbalizations/Mental Status: []Pt alert and oriented, casually dressed, appropriately groomed. Eye contact fair, often looking at phone and disengaging from group. Motor activity appropriate. Speech within normal limits. Affect congruent, mood anxious. Thoughts linear, logical, no signs of hallucinations or delusions. Client Response/Progress/Benefit: [] Pt was inconsistently engaged during discussion AEB taking notes and contributing while also playing a game on his phone. Pt willing to complete the worksheet challenging them to develop a personal SMART goal. Pt chose the goal of starting school prior to this summer. Did struggle with completing the manageable component of the activity which may have been due in part to pt inattention during instructions. Pt stated this will help improving confidence and feel more positive about self. Pt identified procrastination as a barrier. Identified solutions such as making a list of steps needed to accomplish this goal and completing them one at a time. Pt receptive to identifying solutions for these barriers and willing to begin working on this goal. Benefited from this group by developing a short-term SMART goal related to mental health. Will continue IOP tx to continue to promote mood stability and healthy coping skill application, and prevent decompensation. Narrative Note: []
--- NOTE | 2023-07-09 09:10 | BH.SGPN.GN ---
entive. Emotion for today is unsettled . Daily symptom tracker notes 2/5 for depression, anxiety, and irritability. States Xmas ended rough . States that while at a family event he felt overwhelmed and overstimulated. He was in a house with 30 people and most were children. Reports that along with a stressful environment his children were misbehaving. Combination for all these factors led to pt having a meltdown . Briefly described his anger outburst in which he and his family left the holiday event. I immediately knew I was in the wrong . He apologized to his family however continues to feel guilty. I killed all the progress that I made . Ruminating over the events. Group was able to reframe belief that all his progress is lost and that he will continue to decompensate. Pointed out catastrophizing and absolute thinking. Group also reframed the event and worked to identify insight that can be learned in order to implement different strategies in the future. Pt was receptive. Able to identify the last anger outburst was over 2 months ago which is progress. He also reports that he was able to calm more effectively during this event and also had increased awareness of his thoughts and emotions. Benefited from group support, encouragement, and feedback. Will continue in IOP to prevent decompensation/re-admission to psych unit, stabilize mood, and increase healthy coping skills. Narrative Note: []
--- NOTE | 2023-07-09 09:42 | PCM.BH.PN ---
Progress Note Progress Note: History of Present Illness/Interim History: The patient is a 37-year-old male with a history of depression, anxiety and PTSD who is seen in follow-up at the [facility] behavioral health IOP. I last saw the patient 3 weeks ago and at that time no medication changes were made. The patient is engaged in the program and making progress according to the staff. He feels he is doing well overall. He is less depressed but he does state that in the past week due to the holidays he has felt more stressed and feels that he has had 3 panic attacks in the last week due to extra stress because of being home with the kids and [place]. Hydroxyzine helps his panic attacks and he is also learning to talk himself down . He states he has 3 daughters and they were arguing in the past week and he did have 1 anger outburst at them over . But there was no damage of property or any violence or any self-harm. His sleep remains good. He is still working to use his skills he is learning to fight his tendency towards negative thinking. He denies passive thoughts of , suicidal ideation, plan for suicide, homicidal ideation, hallucinations or delusions. Current Psychiatric Medications: [] Seroquel 50 mg p.o. nightly (x 2 months); Wellbutrin XL 150 mg p.o. every morning (x 2 months); hydroxyzine 25 mg p.o. daily up to 3 times a day. Mental Status Examination: [] The patient is an obese 37-year-old male with a raman who is casually dressed and groomed with good hygiene and ambulatory with a normal gait. He is cooperative and pleasant during the interview and has no psychomotor agitation or retardation. Eye contact is good and speech is normal rate and rhythm and fluent with no pressure. Mood is mildly depressed. Affect is minimally constricted. Thought processes goal-directed and organized. Thought content: There is evidence still of negative rumination over his anger outburst. There is no evidence of passive thoughts of , suicidal ideation, plan for suicide, homicidal ideation, hallucinations or delusions. Reality testing is intact. Judgment is intact. Insight is good. Impulsivity is low. Diagnoses: [] 1. Major depressive disorder, recurrent, moderate 2. Panic disorder 3. History of ADHD 4. Primary support and work issues Plan: [] The patient will continue the IOP at [facility] as he has improved greatly and if his improvement continues he may discharge soon in the next week or so. He felt safe during the interview and if it anytime he does not feel safe he will let us know or go to the emergency room. No medication changes were made today. He will continue to follow-up with his outpatient providers and I will see the patient in follow-up while he is in the IOP.
--- NOTE | 2023-07-09 10:10 | BH.SGPN.GN ---
Behaviors/Verbalizations/Mental Status: []Pt alert and oriented, disheveled appearance. Eye contact fair. Motor activity appropriate. Speech within normal limits. Affect constricted, mood depressed. Thoughts linear, logical, no signs of hallucinations or delusions. Client Response/Progress/Benefit: [] Pt connected with topic of anxiety and participated throughout, providing input and taking notes. Attentive during psychoeducation on different anxiety disorders and participated throughout interactive discussion defining anxiety and identifying cognitive and physiological symptoms of anxiety. Group discussed how anxiety can prevent them from trying new things. Common physical and cognitive symptoms identified by group included: exhaustion, shortness of breath, shaking, catastrophizing, and fear of failure. Pt identified reassurance seeking and avoidance as their safety behaviors. Benefited from increased awareness and insight on anxiety and its impact. Plan is to continue in IOP to promote gains and reinforce healthy coping skills. Narrative Note: []
--- NOTE | 2023-07-09 11:10 | BH.SGPN.GN ---
Behaviors/Verbalizations/Mental Status: []Pt alert and oriented, disheveled appearance. Eye contact good. Motor activity appropriate. Speech within normal limits. Affect congruent, mood euthymic. Thoughts linear, logical, no signs of hallucinations or delusions. Client Response/Progress/Benefit: [] Pt was an active participant AEB pt providing input and listening attentively to peers. Attentive during psychoeducation on mindfulness coping skills and their impact on reducing anxiety and improving overall mental health wellness. Group was able to identify self-soothing and mind-based coping skills which included: 5-senses, meditation, deep breathing, journaling, and progressive muscle relaxation. Pt also participated with peers in practicing mindfulness skills in session. Pt would like to work on telling himself that thoughts are thoughts not facts and listening to music. Appeared to benefit from increasing repertoire of anxiety reduction skills. Pt will continue in [facility] tx to reinforce healthy coping skills and establish aftercare. Narrative Note: []
--- NOTE | 2023-07-10 09:05 | BH.SGPN.GN ---
Behaviors/Verbalizations/Mental Status: [] Eye contact is good. Motor activity is appropriate. Appearance is casual. Speech is Appropriate. Mood is depressed/irritable. Affect is congruent. Thoughts are linear and logical. No evidence of psychosis. Reviewed daily check in sheet and no reports of suicidal ideations or intent. Client Response/Progress/Benefit: [] Pt was an active participant in group discussions. Attentive. Emotion for today is frustrated and encouraged . He talked at length regarding his passive and passive-aggressive communication style as well as his people-pleasing tendencies. Insight on how this impacts his relationship, doesn't get his needs met, and often results in him taking the blame in certain situations. I can't let people walk all over me . He discussed being more assertive and setting boundaries in an upcoming discussion with his . He believes this will overall improve their relationship and his mental health. He also discussed health issues If I don't lose weight I'm going to . He discussed issues with his liver and recent PCP encouragement to lose weight. He reports being motivated and has a rough plan which he is going to implement in the upcoming weeks. Benefited from group support, encouragement, and feedback. Insight on the impact that mental health can have on physical health and vice versa. Narrative Note: []
--- NOTE | 2023-07-10 10:10 | BH.SGPN.GN ---
Behaviors/Verbalizations/Mental Status: []Pt alert and oriented, casually dressed and groomed. Eye contact good. Motor activity appropriate. Speech within normal limits. Affect congruent, mood euthymic. Thoughts linear, logical, no signs of hallucinations or delusions. Client Response/Progress/Benefit: []Pt receptive of session, actively engaged throughout AEB taking notes, providing input, and listening to discussion. Appeared to connect with group topic of cognitive distortions and the impact of thought patterns on mental health, coping behaviors, and relationships. Pt connected most with all or nothing thinking, labeling, and jumping to conclusions. Pt appeared to benefit from gaining insight on distorted thinking patterns and how this impacts overall mental health. Will continue IOP tx to reinforce healthy coping, build confidence, and prevent decompensation.
--- NOTE | 2023-07-11 09:05 | BH.SGPN.GN ---
Behaviors/Verbalizations/Mental Status: [] Pt alert and oriented, neatly dressed and groomed. Eye contact good. Motor activity appropriate. Speech within normal limits. Affect congruent, mood euthymic. Thoughts linear, logical, no signs of hallucinations or delusions. Reviewed pt?s symptom tracker, no risk for suicidal ideation, plan, or intent 07/11/23 Client Response/Progress/Benefit: []Pt responded well to session, engaged and participated in the GLAD activity. Pt reports feeling equanimous today on his last day of IOP. Pt shared he feels grateful for the progress and feels proud of himself for changing his response to stressors and for learning how to manage his emotions. Pt reflected on his progress and stated that a recent setback would have caused pt to fall into a deep depression but pt was able to bounce back after a few days. Pt stated he is anxious to be leaving the group support, but pt is going to continue with IOP aftercare and counseling. Pt appeared to benefit from practicing a self-reflection technique and from group support. Pt will discharge from IOP tx as pt has met his tx goals and no longer meets criteria for IOP level of care. Narrative Note: []
--- NOTE | 2023-07-11 10:10 | BH.SGPN.GN ---
Behaviors/Verbalizations/Mental Status: []Pt alert and oriented, casually dressed and groomed. Eye contact good. Motor activity appropriate. Speech within normal limits. Affect congruent, mood euthymic. Thoughts linear, logical, no signs of hallucinations or delusions. Client Response/Progress/Benefit: [] Pt receptive to session AEB contributing to small group discussion, as well as listening attentively to others, and taking notes. Worked with group to brainstorm the positive and negative aspects of stress on physical and mental health. Group did well to identify the benefits of stress as well as the impact of distress on performance, relationships, and mental health. Pt identified their personal top stressors as: marital problems, house projects, job, health problems, and money issues. Pt reports when their jar is ?overflowing? pt tends to avoid or have explosive anger. Pt seemed to benefit from increased awareness of current stressors and impact stress has on mental health. Recommended to continue IOP tx to challenge distorted thoughts, increase consistent use of healthy coping skills, and prevent decompenation.
--- NOTE | 2023-07-11 11:10 | BH.SGPN.GN ---
Behaviors/Verbalizations/Mental Status: []Pt alert and oriented, casually dressed and groomed. Eye contact good. Motor activity appropriate. Speech within normal limits. Affect congruent, mood euthymic. Thoughts linear, logical, no signs of hallucinations or delusions. Client Response/Progress/Benefit: [] Pt was an active participant in group discussions and experiential activity. Was able to identify the connection between the experimental activity and utilization of stress management skills. Pt reported good succeeded because of their clear communication. Attentive during psychoeducation on the 4 A's (Avoid, adapt, alter, accept) of coping with stress. Pt shared plans to utilize the skill of adapting his perspective/thoughts when looking at his job stressor. Benefited from increased awareness of stress management strategies. Will continue in IOP to increase follow through of healthy coping skills, challenge distortions, and prevent decompensation.
== END 2023-07-11 12:59 | disposition home or self-care (01) ==
LOC: BHIOP 07:09
PROVIDERS: PCP Family Medicine; Referring Provider Psychiatry & Neurology Psychiatry; Visit Provider Psychiatry & Neurology Psychiatry
DX: F33.1 Major depressive disorder, recurrent, moderate (principal); F41.0 Panic disorder [episodic paroxysmal anxiety]; F90.9 Attention-deficit hyperactivity disorder, unspecified type; E66.9 Obesity, unspecified; Z79.899 Other long term (current) drug therapy
CPT/HCPCS: S9480; 90832; 90834; 90853

== ENCOUNTER → 2023-06-26 | Outpatient (CLI) | payer OTHER, SELFPAY ==
[2023-06-26 09:15] LABS: Bacteria 0 SEEN /hpf (None Seen); Mucous, Urine 0 SEEN /hpf (<or=2+); Red Blood Cells-Urine 0 SEEN /hpf (0-5); Squamous Epithelial Cells - UA 0 SEEN /hpf (0-5); White Blood Cells 0 SEEN /hpf (0-5)
[2023-06-26 10:06] LABS: Absolute Lymphocyte Count 2.02 X10^3/uL (0.83-4.51); Absolute Neutrophil Count 3.2 X10^3/uL (2.0-7.7); Basophil# 0.07 X10^3/uL; Basophil% 1.2 % (0-1); Color, Urine Yellow (Yellow); Eosinophil# 0.19 X10^3/uL; Eosinophils% 3.1 % (0-5); Glucose, Dipstick Normal (Normal); Hematocrit 47.5 % (40-54); Hemoglobin 15.3 g/dL (13.0-16.5); Ketone-Dipstick Negative (Negative); Leukocyte Esterase-Dipstick 25 /ul (Negative); Lymphocyte # 2.02 X10^3/ul (0.83-4.51); Lymphocyte % 33.4 % (19-41); Mean Corp Hgb Conc 32.2 g/dL (32-36); Mean Corpuscular Hgb 30.4 pg (27.0-32.0); Mean Corpuscular Volume 94.2 fL (80-94); Monocyte# 0.58 X10^3/uL; Monocyte% 9.6 % (0-10); NRBC Flagged by Analyzer 0 % (0-5); Neutrophil # 3.17 X10^3/uL (2.7-7.7); Neutrophil % 52.4 % (47-70); Nitrite-Dipstick Negative (Negative); Occult Blood-Urine Negative /ul (Negative); Platelet Count 316 K/mm3 (150-450); Protein-Dipstick 15 mg/dl (Negative); RBC Distribution Width CV 14.1 % (11.6-14.6); RBC Distribution Width SD 49.2 fl (35.1-43.9); Red Blood Count 5.04 M/mm3 (4.6-6.2); Specific Gravity, Urine 1.025 (1.002-1.030); Urine Bilirubin Dipstick Negative (Negative); Urine Clarity Clear (Clear); Urine Urobilinogen Normal (Normal); White Blood Count 6.1 K/mm3 (4.4-11.0)
[2023-06-26 12:05] LABS: ALB/GLOB Ratio 0.9 RATIO (0.9-2.4); AST(SGOT) 24 U/L (15-37); Alanine Aminotransfer ALT/SGPT 50 U/L (16-61); Albumin, Serum 3.5 g/dL (3.2-5.0); Alkaline Phosphatase 102 U/L (45-117); Anion Gap 5 (5-15); BUN 17 mg/dL (7-18); BUN/Creat Ratio 13.9 RATIO (10-20); Calcium,Total 9.3 mg/dL (8.5-10.1); Chloride 108 mmol/L (98-107); Cholesterol 144 mg/dL (200); Creatinine, Serum 1.22 mg/dL (0.70-1.30); EST Glomerular Filtration Rate 71 mL/min (>60); Est Glom Filt Rate - Afr Amer 86 mL/min (>60); Glucose 91 mg/dL (74-106); High Density Lipoprotein 52 mg/dL; Potassium 3.8 mmol/L (3.5-5.1); Protein, Total 7.5 g/dL (6.4-8.2); Sodium Level 140 mmol/L (136-145); Thyroid Stim Hormone (TSH) 1.65 uIU/mL (0.358-3.74); Triglycerides 106 mg/dL; Very Low Density Lipoprotein 21 mg/dL (5-40)
== END | disposition home or self-care (01) ==
LOC: MFPLAB 09:13
PROVIDERS: PCP Family Medicine; Visit Provider Family Medicine
DX: I10 Essential (primary) hypertension (principal)
CPT/HCPCS: 36415; 80053; 80061; 81001; 84443; 85025

== ENCOUNTER 2023-07-24 09:00 | Outpatient (RCR) | payer OTHER, SELFPAY ==
--- NOTE | 2023-07-24 15:14 | BH.COMM ---
Communication Note Communication with Client Communication Note: Patient completed IOP and presents today to start relapse prevention group which meets once weekly (1.5 hours) for 8 weeks. Case discussed with Dr. De with plan to admit with dx of F33.1
--- NOTE | 2023-07-24 18:24 | BH.MTP_ITS ---
Master Treatment Plan Patient Information Program Physician:: Dr. Minal Cho Primary Therapist:: Kelly BAUMANN Psychiatric Diagnoses Psychiatric Diagnoses:: Major depressive disorder, recurrent, severe without psychosis F33.2; Panic disorder; History of ADHD Diagnosis Code(s):: F 33.2 Estimated LOS Estimated LOS (in weeks):: 8 Problem/Goal #1 Problem/Goal #1 Stated Goal:: client will maintain or see a reduction in symptoms AEB client score on the DSM 5 cross-cutting measure and improve client's daily functioning. Objectives Objective #1: Stated Objective: Client will continue to consistently apply healthy coping skills to maintain progress made in IOP tx. Interventions: Through group therapy, client will review warning signs and triggers as well as healthy coping skills learned in IOP tx to successfully maintain gains while transitioning into outpatient therapy. Discharge Criteria: Client will have accomplished this goal when client's score on the DSM-5 cross-cutting measure has maintained or reduced over a 8 week period. Target Date: 09/18/23 Review Date: 08/21/23 Status: open Objective #2: Stated Objective: Client will learn and utilize 2-3 maintenance strategies to prevent decompensation from original IOP DSM-5 scores. Interventions: Through group therapy, client will be provided with education on healthy maintenance behaviors, relapse prevention techniques, and healthy coping strategies. Discharge Criteria: Client will have accomplished this goal when can repo rt using at least 2 maintenance skills to prevent decompensation compared to original IOP DSM-5 scores Target Date: 09/18/23 Review Date: 08/21/23 Status: open
--- NOTE | 2023-07-25 14:00 | BH.SGPN.GN ---
Behaviors/Verbalizations/Mental Status: [] Pt alert and oriented, casually dressed. Eye contact good. Motor activity appropriate. Speech within normal limits. Affect congruent, mood euthymic. Thoughts linear, logical, no signs of hallucinations or delusions. Client Response/Progress/Benefit: [] Pt receptive of session, engaged and providing supportive feedback throughout group. Reports that since leaving IOP he feels he has been managing well and using a lot of healthy coping skills. Pt reported he has been ?looking at the balderas? and practicing thought challenging. Pt has been consistent with medication and he recently had his first therapy session. Pt engaged in the discussion about self-love and participated in the experiential activity that highlighted the acceptance component of self-love. Reports wanting to work on self-love by using the journal prompt of ?writing a letter to your future self about your hopes and dreams.? Seemed to benefit from reviewing treatment progress and strategies for managing current stressors, as well as learning about how to increase self-love. Pt to continue IOP aftercare tx to promote mood stability, reinforce gains made in IOP, and review coping skills from IOP. Narrative Note: []
--- NOTE | 2023-08-07 14:00 | BH.SGPN.GN ---
Behaviors/Verbalizations/Mental Status: []Pt alert and oriented, casually dressed and groomed. Eye contact fair. Motor activity appropriate. Speech within normal limits. Affect constricted, mood euthymic. Thoughts linear, logical, no signs of hallucinations or delusions. Client Response/Progress/Benefit: []Pt shared he met with his outpatient psychiatrist and individual counseling last week and sees his providers biweekly. Client stated he is taking his medications consistently. client reported over the last week he has been working on using assertive communication and looking at the balderas instead of getting stuck in black and white thinking. Client reported he was able to manage his emotions during a conflict at work which helped him resolve the conflict faster. Client was somewhat distracted during initial discussions about gratitude AEB him focusing on his phone off and on throughout group. Client created his gratitude plan for the week. Pt to continue IOP to maintain gains, increase healthy coping skills, and prevent decompensation. Narrative Note: []
== END 2023-08-13 23:59 ==
LOC: BHOG 09:00
PROVIDERS: PCP Family Medicine; Referring Provider Psychiatry & Neurology Psychiatry; Visit Provider Psychiatry & Neurology Psychiatry
DX: F33.2 Major depressive disorder, recurrent severe without psychotic features (principal); F41.0 Panic disorder [episodic paroxysmal anxiety]; F90.9 Attention-deficit hyperactivity disorder, unspecified type
CPT/HCPCS: 90853

== ENCOUNTER 2023-08-14 08:03 | Outpatient (RCR) | payer OTHER, SELFPAY | END 2023-08-28 14:26 | disposition home or self-care (01) | LOC: BHOG 08:03 | PROVIDERS: PCP Family Medicine; Referring Provider Psychiatry & Neurology Psychiatry; Visit Provider Psychiatry & Neurology Psychiatry | DX: F33.2 Major depressive disorder, recurrent severe without psychotic features (principal); F90.9 Attention-deficit hyperactivity disorder, unspecified type; F41.0 Panic disorder [episodic paroxysmal anxiety] ==

== ENCOUNTER → 2023-10-28 | Outpatient (CLI) | payer OTHER, SELFPAY ==
[2023-10-28 17:49] LABS: Absolute Lymphocyte Count 2.66 X10^3/uL (0.83-4.51); Absolute Neutrophil Count 4.6 X10^3/uL (2.0-7.7); Basophil# 0.07 X10^3/uL; Basophil% 0.8 % (0-1); Eosinophil# 0.24 X10^3/uL; Eosinophils% 2.9 % (0-5); Hematocrit 46.9 % (40-54); Hemoglobin 15.4 g/dL (13.0-16.5); Lymphocyte # 2.66 X10^3/ul (0.83-4.51); Lymphocyte % 31.7 % (19-41); Mean Corp Hgb Conc 32.8 g/dL (32-36); Mean Corpuscular Hgb 30.5 pg (27.0-32.0); Mean Corpuscular Volume 92.9 fL (80-94); Mean Platelet Vol. 10.3 fl (6.2-12.0); Monocyte# 0.78 X10^3/uL; Monocyte% 9.3 % (0-10); NRBC Flagged by Analyzer 0 % (0-5); Neutrophil # 4.61 X10^3/uL (2.7-7.7); Neutrophil % 55.1 % (47-70); Platelet Count 329 K/mm3 (150-450); RBC Distribution Width CV 14.2 % (11.6-14.6); RBC Distribution Width SD 48.3 fl (35.1-43.9); Red Blood Count 5.05 M/mm3 (4.6-6.2); White Blood Count 8.4 K/mm3 (4.4-11.0)
[2023-10-28 18:18] LABS: ALB/GLOB Ratio 0.9 RATIO (0.9-2.4); AST(SGOT) 23 U/L (15-37); Alanine Aminotransfer ALT/SGPT 52 U/L (16-61); Albumin, Serum 3.6 g/dL (3.2-5.0); Alkaline Phosphatase 104 U/L (45-117); Anion Gap 5 (5-15); BUN 19 mg/dL (7-18); BUN/Creat Ratio 11.6 RATIO (10-20); Chloride 108 mmol/L (98-107); Cholesterol 157 mg/dL (200); Creatinine, Serum 1.64 mg/dL (0.70-1.30); EST Glomerular Filtration Rate 51 mL/min (>60); Est Glom Filt Rate - Afr Amer 61 mL/min (>60); Globulin 4.1 g/dL (2.2-4.2); Glucose 95 mg/dL (74-106); High Density Lipoprotein 51 mg/dL; Magnesium 2.1 mg/dL (1.6-2.6); Potassium 3.8 mmol/L (3.5-5.1); Protein, Total 7.7 g/dL (6.4-8.2); Sodium Level 141 mmol/L (136-145); Thyroid Stim Hormone (TSH) 1.52 uIU/mL (0.358-3.74); Triglycerides 168 mg/dL; Very Low Density Lipoprotein 34 mg/dL (5-40)
== END | disposition home or self-care (01) ==
LOC: MFPLAB 16:23
PROVIDERS: PCP Family Medicine; Visit Provider Family Medicine
DX: E66.01 Morbid (severe) obesity due to excess calories (principal); I10 Essential (primary) hypertension
CPT/HCPCS: 36415; 80053; 80061; 83735; 84443; 85025

== ENCOUNTER → 2024-04-23 | Outpatient (CLI) | payer OTHER, SELFPAY ==
[2024-04-23 16:49] LABS: Bacteria 0 SEEN /hpf (None Seen); Mucous, Urine 0 SEEN /hpf (<or=2+); Red Blood Cells-Urine 0 SEEN /hpf (0-5); Squamous Epithelial Cells - UA 0 SEEN /hpf (0-5); White Blood Cells 0 SEEN /hpf (0-5)
[2024-04-23 17:56] LABS: Absolute Lymphocyte Count 2.75 X10^3/uL (0.83-4.51); Eosinophil# 0.48 X10^3/uL; Eosinophils% 4.7 % (0-5); Hematocrit 47.4 % (40-54); Hemoglobin 16.1 g/dL (13.0-16.5); Lymphocyte # 2.75 X10^3/ul (0.83-4.51); Lymphocyte % 26.7 % (19-41); Mean Corpuscular Hgb 30.8 pg (27.0-32.0); Mean Corpuscular Volume 90.8 fL (80-94); Mean Platelet Vol. 10.4 fl (6.2-12.0); Monocyte# 0.93 X10^3/uL; NRBC Flagged by Analyzer 0 % (0-5); Neutrophil % 58.3 % (47-70); Platelet Count 402 K/mm3 (150-450); RBC Distribution Width CV 13.4 % (11.6-14.6); RBC Distribution Width SD 45.3 fl (35.1-43.9); Red Blood Count 5.22 M/mm3 (4.6-6.2); White Blood Count 10.3 K/mm3 (4.4-11.0)
[2024-04-23 18:01] LABS: Color, Urine Yellow (Yellow); Glucose, Dipstick Normal (Normal); Ketone-Dipstick Negative (Negative); Leukocyte Esterase-Dipstick Negative /ul (Negative); Nitrite-Dipstick Negative (Negative); Occult Blood-Urine Negative /ul (Negative); Protein-Dipstick 15 mg/dl (Negative); Urine Bilirubin Dipstick Negative (Negative); Urine Clarity Sl. Cloudy (Clear); Urine Urobilinogen Normal (Normal)
[2024-04-23 18:08] LABS: ALB/GLOB Ratio 0.9 RATIO (0.9-2.4); AST(SGOT) 20 U/L (15-37); Alanine Aminotransfer ALT/SGPT 64 U/L (16-61); Albumin, Serum 4.1 g/dL (3.2-5.0); Alkaline Phosphatase 90 U/L (45-117); Anion Gap 7 (5-15); BUN 16 mg/dL (7-18); BUN/Creat Ratio 11.9 RATIO (10-20); Calcium,Total 9.6 mg/dL (8.5-10.1); Chloride 101 mmol/L (98-107); Cholesterol 158 mg/dL (200); Creatinine, Serum 1.35 mg/dL (0.70-1.30); EST Glomerular Filtration Rate 63 mL/min (>60); Est Glom Filt Rate - Afr Amer 77 mL/min (>60); Globulin 4.4 g/dL (2.2-4.2); Glucose 81 mg/dL (74-106); High Density Lipoprotein 63 mg/dL; Magnesium 2.2 mg/dL (1.6-2.6); Potassium 3.3 mmol/L (3.5-5.1); Protein, Total 8.5 g/dL (6.4-8.2); Sodium Level 136 mmol/L (136-145); Triglycerides 108 mg/dL; Very Low Density Lipoprotein 22 mg/dL (5-40)
[2024-04-28 15:09] LABS: PROEL- A/G Ratio 1.2 (0.7-1.7); PROEL- Albumin 4.2 g/dL (2.9-4.4); PROEL- Alpha-1 Globulin 0.3 g/dL (0.0-0.4); PROEL- Alpha-2 Globulin 0.7 g/dL (0.4-1.0); PROEL- Beta Globulin 1.2 g/dL (0.7-1.3); PROEL- Gamma Globulin 1.5 g/dL (0.4-1.8); PROEL- Globulin, Total 3.6 g/dL (2.2-3.9); PROEL- TOTAL PROTEIN 7.8 g/dL (6.0-8.5); PROEL-M-Spike Not Observed g/dL (Not Observed)
== END | disposition home or self-care (01) ==
LOC: MFPLAB 16:47
PROVIDERS: PCP Family Medicine; Visit Provider Family Medicine
DX: I10 Essential (primary) hypertension (principal)
CPT/HCPCS: 36415; 80053; 80061; 81001; 83735; 84165; 84443; 85025

== ENCOUNTER → 2024-05-12 | Outpatient (CLI) | payer OTHER, SELFPAY ==
[2024-05-12 17:31] LABS: Absolute Lymphocyte Count 2.92 X10^3/uL (0.83-4.51); Absolute Neutrophil Count 5.3 X10^3/uL (2.0-7.7); Basophil# 0.11 X10^3/uL; Basophil% 1.2 % (0-1); Eosinophil# 0.42 X10^3/uL; Eosinophils% 4.4 % (0-5); Hematocrit 47.9 % (40-54); Hemoglobin 15.7 g/dL (13.0-16.5); Lymphocyte # 2.92 X10^3/ul (0.83-4.51); Lymphocyte % 30.9 % (19-41); Mean Corp Hgb Conc 32.8 g/dL (32-36); Mean Corpuscular Hgb 30.3 pg (27.0-32.0); Mean Corpuscular Volume 92.5 fL (80-94); Monocyte# 0.64 X10^3/uL; Monocyte% 6.8 % (0-10); NRBC Flagged by Analyzer 0 % (0-5); Neutrophil # 5.34 X10^3/uL (2.7-7.7); Neutrophil % 56.4 % (47-70); Platelet Count 373 K/mm3 (150-450); RBC Distribution Width CV 13.2 % (11.6-14.6); RBC Distribution Width SD 45.4 fl (35.1-43.9); Red Blood Count 5.18 M/mm3 (4.6-6.2); White Blood Count 9.5 K/mm3 (4.4-11.0)
[2024-05-12 18:01] LABS: AST(SGOT) 25 U/L (15-37); Alanine Aminotransfer ALT/SGPT 67 U/L (16-61)
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
== END | disposition home or self-care (01) ==
PROVIDERS: PCP Family Medicine; Referring Provider Nurse Practitioner Family; Visit Provider Nurse Practitioner Family
DX: L40.0 Psoriasis vulgaris (principal); Z79.899 Other long term (current) drug therapy
CPT/HCPCS: 36415; 84450; 84460; 85025; 86480

== ENCOUNTER → 2024-08-24 | Outpatient (CLI) | payer OTHER, SELFPAY ==
[2024-08-24 17:59] LABS: Absolute Lymphocyte Count 2.88 X10^3/uL (0.83-4.51); Absolute Neutrophil Count 5.8 X10^3/uL (2.0-7.7); Basophil# 0.09 X10^3/uL; Basophil% 0.9 % (0-1); Eosinophil# 0.18 X10^3/uL; Eosinophils% 1.8 % (0-5); Hematocrit 48.1 % (40-54); Hemoglobin 15.6 g/dL (13.0-16.5); Lymphocyte # 2.88 X10^3/ul (0.83-4.51); Lymphocyte % 29.3 % (19-41); Mean Corp Hgb Conc 32.4 g/dL (32-36); Mean Corpuscular Hgb 29.9 pg (27.0-32.0); Mean Corpuscular Volume 92.1 fL (80-94); Monocyte# 0.87 X10^3/uL; Monocyte% 8.8 % (0-10); NRBC Flagged by Analyzer 0 % (0-5); Platelet Count 399 K/mm3 (150-450); RBC Distribution Width CV 14.3 % (11.6-14.6); RBC Distribution Width SD 48.4 fl (35.1-43.9); Red Blood Count 5.22 M/mm3 (4.6-6.2); White Blood Count 9.8 K/mm3 (4.4-11.0)
[2024-08-24 18:48] LABS: AST(SGOT) 21 U/L (15-37); Alanine Aminotransfer ALT/SGPT 48 U/L (16-61); Albumin, Serum 4.1 g/dL (3.2-5.0); Alkaline Phosphatase 92 U/L (45-117); Anion Gap 7 (5-15); BUN 18 mg/dL (7-18); BUN/Creat Ratio 16.2 RATIO (10-20); Calcium,Total 9.5 mg/dL (8.5-10.1); Chloride 102 mmol/L (98-107); Cholesterol 127 mg/dL (200); Creatinine, Serum 1.11 mg/dL (0.70-1.30); EST Glomerular Filtration Rate 79 mL/min (>60); Est Glom Filt Rate - Afr Amer 96 mL/min (>60); Globulin 4.2 g/dL (2.2-4.2); Glucose 80 mg/dL (74-106); High Density Lipoprotein 53 mg/dL; Potassium 3.8 mmol/L (3.5-5.1); Protein, Total 8.3 g/dL (6.4-8.2); Sodium Level 139 mmol/L (136-145); Triglycerides 109 mg/dL; Very Low Density Lipoprotein 22 mg/dL (5-40)
== END | disposition home or self-care (01) ==
LOC: MFPLAB 16:44
PROVIDERS: PCP Family Medicine; Referring Provider Family Medicine; Visit Provider Family Medicine
DX: I10 Essential (primary) hypertension (principal)
CPT/HCPCS: 36415; 80053; 80061; 85025